=== PATIENT | male | born 1955 | race African-American/Black ===

== ENCOUNTER 2016-09-09 15:09 | Emergency (ER) | payer MEDICARE ==
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
[2016-09-09 20:55] VITALS: BP 129/82
== END 2016-09-09 20:35 | disposition home or self-care (01) ==
LOC: ER 15:09
DX: J06.9 Acute upper respiratory infection, unspecified (principal); M54.9 Dorsalgia, unspecified; M25.511 Pain in right shoulder; M54.6 Pain in thoracic spine
CPT/HCPCS: 71020; 99283

== ENCOUNTER → 2017-02-25 | Outpatient (CLI) | payer MEDICARE ==
[2017-02-25 12:49] LABS: HEMATOCRIT 36.5 % (37.9-51.0); HEMOGLOBIN 11.9 g/dL (13.5-17.0); HGB HCT DIFFERENCE -0.8; MEAN CORPUSCULAR HEMOGLOBIN 32.9 pg (27.0-33.4); MEAN CORPUSCULAR HGB CONC 32.5 g/dL (32.0-36.0); MEAN CORPUSCULAR VOLUME 101 fl (80-97); RED BLOOD COUNT 3.61 10^6/uL (4.35-5.55); RED CELL DISTRIBUTION WIDTH 14.2 % (11.5-14.0); WHITE BLOOD COUNT 4.1 10^3/uL (4.0-10.5)
[2017-02-25 12:54] LABS: APPEARANCE,URINE SLIGHTLY-CLOUDY; BILIRUBIN,URINE NEGATIVE (NEGATIVE); GLUCOSE, URINE NEGATIVE (NEGATIVE); KETONES,URINE NEGATIVE (NEGATIVE); LEUKOCYTE ESTERASE,URINE NEGATIVE (NEGATIVE); NITRITE,URINE NEGATIVE (NEGATIVE); PROTEIN,URINE NEGATIVE (NEGATIVE); URINE SPECIFIC GRAVITY 1.004; UROBILINOGEN,URINE NEGATIVE mg/dL (<2.0)
[2017-02-25 13:15] LABS: ANION GAP 9 (5-19); BLOOD UREA NITROGEN 26 mg/dL (7-20); CALCIUM 10.4 mg/dL (8.4-10.2); CARBON DIOXIDE 28 mmol/L (22-30); CHLORIDE 101 mmol/L (98-107); CREATININE RESULT 1.84 mg/dL (0.52-1.25); GLUCOSE 106 mg/dL (75-110); POTASSIUM 4.5 mmol/L (3.6-5.0); SODIUM 138.2 mmol/L (137-145)
== END ==
LOC: OD 11:47
PROVIDERS: ATTEND Internal Medicine Nephrology
DX: E11.22 Type 2 diabetes mellitus with diabetic chronic kidney disease (principal); I12.9 Hypertensive chronic kidney disease with stage 1 through stage 4 chronic kidney disease, or unspecified chronic kidney disease; N18.3 Chronic kidney disease, stage 3 (moderate); D64.9 Anemia, unspecified
CPT/HCPCS: 36415; 80048; 81001; 82728; 83540; 83550; 85027

== ENCOUNTER → 2017-05-27 | Outpatient (CLI) | payer MEDICARE ==
[2017-05-27 10:49] LABS: APPEARANCE,URINE CLEAR; BILIRUBIN,URINE NEGATIVE (NEGATIVE); GLUCOSE, URINE NEGATIVE (NEGATIVE); KETONES,URINE NEGATIVE (NEGATIVE); LEUKOCYTE ESTERASE,URINE NEGATIVE (NEGATIVE); NITRITE,URINE NEGATIVE (NEGATIVE); PROTEIN,URINE NEGATIVE (NEGATIVE); URINE SPECIFIC GRAVITY 1.005; UROBILINOGEN,URINE NEGATIVE mg/dL (<2.0)
[2017-05-27 10:52] LABS: HEMATOCRIT 34.6 % (37.9-51.0); HEMOGLOBIN 12.1 g/dL (13.5-17.0); HGB HCT DIFFERENCE 1.7; MEAN CORPUSCULAR HEMOGLOBIN 34.6 pg (27.0-33.4); MEAN CORPUSCULAR HGB CONC 34.9 g/dL (32.0-36.0); MEAN CORPUSCULAR VOLUME 99 fl (80-97); RED BLOOD COUNT 3.49 10^6/uL (4.35-5.55); WHITE BLOOD COUNT 4.2 10^3/uL (4.0-10.5)
[2017-05-27 11:08] LABS: ANION GAP 11 (5-19); BLOOD UREA NITROGEN 31 mg/dL (7-20); CALCIUM 11.1 mg/dL (8.4-10.2); CARBON DIOXIDE 26 mmol/L (22-30); CHLORIDE 104 mmol/L (98-107); CREATININE RESULT 1.94 mg/dL (0.52-1.25); GLUCOSE 117 mg/dL (75-110); POTASSIUM 4.5 mmol/L (3.6-5.0); SODIUM 140.8 mmol/L (137-145)
== END ==
LOC: OD 10:03
PROVIDERS: ATTEND Internal Medicine Nephrology
DX: E83.52 Hypercalcemia (principal); I12.9 Hypertensive chronic kidney disease with stage 1 through stage 4 chronic kidney disease, or unspecified chronic kidney disease; N18.3 Chronic kidney disease, stage 3 (moderate); M10.00 Idiopathic gout, unspecified site
CPT/HCPCS: 36415; 80048; 81001; 83970; 85027

== ENCOUNTER → 2017-08-20 | Outpatient (CLI) | payer MEDICARE ==
[2017-08-20 13:17] LABS: HEMATOCRIT 39.4 % (37.9-51.0); HGB HCT DIFFERENCE -0.4; MEAN CORPUSCULAR HEMOGLOBIN 32.7 pg (27.0-33.4); MEAN CORPUSCULAR VOLUME 99 fl (80-97); RED BLOOD COUNT 3.98 10^6/uL (4.35-5.55); RED CELL DISTRIBUTION WIDTH 13.8 % (11.5-14.0); WHITE BLOOD COUNT 4.6 10^3/uL (4.0-10.5)
[2017-08-20 13:23] LABS: APPEARANCE,URINE CLEAR; BILIRUBIN,URINE NEGATIVE (NEGATIVE); GLUCOSE, URINE NEGATIVE (NEGATIVE); KETONES,URINE NEGATIVE (NEGATIVE); LEUKOCYTE ESTERASE,URINE NEGATIVE (NEGATIVE); NITRITE,URINE NEGATIVE (NEGATIVE); PROTEIN,URINE NEGATIVE (NEGATIVE); URINE SPECIFIC GRAVITY 1.004; UROBILINOGEN,URINE NEGATIVE mg/dL (<2.0)
[2017-08-20 13:40] LABS: ANION GAP 10 (5-19); BLOOD UREA NITROGEN 21 mg/dL (7-20); CARBON DIOXIDE 32 mmol/L (22-30); CHLORIDE 99 mmol/L (98-107); CREATININE RESULT 1.66 mg/dL (0.52-1.25); GLUCOSE 102 mg/dL (75-110); POTASSIUM 4.3 mmol/L (3.6-5.0); SODIUM 140.5 mmol/L (137-145)
[2017-08-22 12:38] LABS: CREATININE URINE 34.4 mg/dL (Not Estab.)
[2017-08-22 15:21] LABS: MICROALBUMIN URINE <3.0 ug/mL (Not Estab.)
== END ==
LOC: OD 12:10
PROVIDERS: ATTEND Physician Assistant Medical
DX: I12.9 Hypertensive chronic kidney disease with stage 1 through stage 4 chronic kidney disease, or unspecified chronic kidney disease (principal); N18.3 Chronic kidney disease, stage 3 (moderate); E11.9 Type 2 diabetes mellitus without complications; D64.9 Anemia, unspecified
CPT/HCPCS: 36415; 80048; 81001; 82043; 82570; 84165; 85027

== ENCOUNTER 2017-08-27 14:16 | Emergency (ER) | payer MEDICARE ==
[2017-08-27 14:22] VITALS: BP 137/64
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
== END 2017-08-27 16:02 | disposition home or self-care (01) ==
LOC: ER 14:16
DX: R05 Cough (principal); B99.9 Unspecified infectious disease; J44.9 Chronic obstructive pulmonary disease, unspecified; R51 Headache; R11.0 Nausea; J02.9 Acute pharyngitis, unspecified; R09.81 Nasal congestion; I10 Essential (primary) hypertension; E11.9 Type 2 diabetes mellitus without complications; Z88.1 Allergy status to other antibiotic agents; Z88.8 Allergy status to other drugs, medicaments and biological substances; Z95.5 Presence of coronary angioplasty implant and graft
CPT/HCPCS: 82962; 99283

== ENCOUNTER 2017-12-10 14:45 | Emergency (ER) | payer MEDICARE, MEDICAID ==
[2017-12-10 15:09] VITALS: BP 138/109
[2017-12-10] MEDS ORDERED: PENICILLIN V POTASSIUM 500 MG TABLET PO ONE (15:36)
[2017-12-10] MEDS ORDERED: ACETAMINOPHEN 325 MG TABLET PO ONE (15:36)
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
== END 2017-12-10 15:36 | disposition home or self-care (01) ==
LOC: ER 14:45
DX: K08.9 Disorder of teeth and supporting structures, unspecified (principal); I50.9 Heart failure, unspecified; E78.00 Pure hypercholesterolemia, unspecified; I11.0 Hypertensive heart disease with heart failure; J44.9 Chronic obstructive pulmonary disease, unspecified; E11.9 Type 2 diabetes mellitus without complications; K21.9 Gastro-esophageal reflux disease without esophagitis
CPT/HCPCS: 99282; A9270 ×2

== ENCOUNTER → 2018-02-05 | Outpatient (CLI) | payer MEDICARE, MEDICAID ==
[2018-02-05 15:45] LABS: HEMOGLOBIN 12.9 g/dL (13.5-17.0); MEAN CORPUSCULAR HGB CONC 33.2 g/dL (32.0-36.0); MEAN CORPUSCULAR VOLUME 99 fl (80-97); PLATELET COUNT 152 10^3/uL (150-450); RED BLOOD COUNT 3.93 10^6/uL (4.35-5.55); WHITE BLOOD COUNT 4.1 10^3/uL (4.0-10.5)
[2018-02-05 15:49] LABS: APPEARANCE,URINE CLEAR; BILIRUBIN,URINE NEGATIVE (NEGATIVE); COLOR,URINE STRAW; GLUCOSE, URINE NEGATIVE (NEGATIVE); KETONES,URINE NEGATIVE (NEGATIVE); LEUKOCYTE ESTERASE,URINE NEGATIVE (NEGATIVE); NITRITE,URINE NEGATIVE (NEGATIVE); PROTEIN,URINE NEGATIVE (NEGATIVE); URINE SPECIFIC GRAVITY 1.005; UROBILINOGEN,URINE NEGATIVE mg/dL (<2.0)
[2018-02-05 16:09] LABS: ANION GAP 12 (5-19); BLOOD UREA NITROGEN 22 mg/dL (7-20); CALCIUM 11.3 mg/dL (8.4-10.2); CARBON DIOXIDE 31 mmol/L (22-30); CHLORIDE 102 mmol/L (98-107); GLUCOSE 101 mg/dL (75-110); POTASSIUM 4.4 mmol/L (3.6-5.0); SODIUM 145.1 mmol/L (137-145)
== END ==
LOC: OD 14:54
PROVIDERS: ATTEND Physician Assistant Medical
DX: E11.22 Type 2 diabetes mellitus with diabetic chronic kidney disease (principal); I12.9 Hypertensive chronic kidney disease with stage 1 through stage 4 chronic kidney disease, or unspecified chronic kidney disease; N18.3 Chronic kidney disease, stage 3 (moderate); M10.00 Idiopathic gout, unspecified site; D64.9 Anemia, unspecified
CPT/HCPCS: 36415; 80048; 81001; 85027

== ENCOUNTER 2018-05-28 19:48 | Inpatient (IN) | payer MEDICARE, MEDICAID ==
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
[2018-05-28 21:18] LABS: ABSOLUTE EOSINOPHILS # (AUTO) 0.2 10^3/uL (0.0-0.6); ABSOLUTE LYMPHOCYTES (AUTO) 1.3 10^3/uL (0.5-4.7); ABSOLUTE MONOCYTES (AUTO) 0.5 10^3/uL (0.1-1.4); ABSOLUTE NEUT (AUTO) 3.4 10^3/uL (1.7-8.2); BASOPHILS % (AUTO) 0.6 % (0-2); EOSINOPHILS % (AUTO) 3.4 % (0-6); LYMPHOCYTES % (AUTO) 23.5 % (13-45); MEAN CORPUSCULAR HEMOGLOBIN 33.1 pg (27.0-33.4); MEAN CORPUSCULAR HGB CONC 33.3 g/dL (32.0-36.0); MEAN CORPUSCULAR VOLUME 100 fl (80-97); MONOCYTES % (AUTO) 9.9 % (3-13); PLATELET COUNT 173 10^3/uL (150-450); RED BLOOD COUNT 3.91 10^6/uL (4.35-5.55); RED CELL DISTRIBUTION WIDTH 14.1 % (11.5-14.0); SEGMENTED NEUTROPHILS % (AUTO) 62.6 % (42-78); TOTAL CELLS COUNTED % (AUTO) 100 %; WHITE BLOOD COUNT 5.4 10^3/uL (4.0-10.5)
[2018-05-28 21:31] LABS: ANION GAP 12 (5-19); BLOOD UREA NITROGEN 54 mg/dL (7-20); CARBON DIOXIDE 25 mmol/L (22-30); CHLORIDE 100 mmol/L (98-107); GLUCOSE 87 mg/dL (75-110); POTASSIUM 4.7 mmol/L (3.6-5.0); SODIUM 137.4 mmol/L (137-145)
[2018-05-28 21:48] LABS: NT PRO BNP 50 pg/mL (5-900)
[2018-05-28 21:52] LABS: TROPONIN I < 0.012 ng/mL
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
[2018-05-29] MEDS ORDERED: NORMAL SALINE 1000 ML 500 ML IV ONE (00:46)
--- NOTE | 2018-05-29 00:52 | RADIOLOGY REPORT (SQ) ---
EXAM DESCRIPTION: Chest two view CLINICAL HISTORY: 63 years Male shortness of breath COMPARISON: 09/09/2016 COMPLETED DATE/TME: 05/28/2018 20:48 FINDINGS: Cardiac enlargement. Lungs appear hyperinflated. Prominence of the central pulmonary vasculature. No evidence of acute consolidation. No edema or pleural fluid. IMPRESSION: Cardiac enlargement and prominence of the central pulmonary vasculature
[2018-05-29] MEDS ORDERED: 1/2 NORMAL SALINE 1,000 ML IV PRN (05:35)
[2018-05-29] MEDS ORDERED: ALBUTEROL SULFATE HFA (90 MCG/PUFF) 8 GM MDI (1 MDI/ER DISP) IH PRN ×2 (05:43→06:30)
[2018-05-29] MEDS ORDERED: GABAPENTIN 300 MG CAPSULE PO ONE (06:15)
[2018-05-29 06:46] LABS: ALANINE AMINOTRANSFERASE 30 U/L (21-72); ALBUMIN 4.4 g/dL (3.5-5.0); ALKALINE PHOSPHATASE 73 U/L (38-126); ASPARTATE AMINO TRANSFERASE 15 U/L (17-59); BILIRUBIN,DIRECT 0.5 mg/dL (0.0-0.4); BILIRUBIN,TOTAL 0.9 mg/dL (0.2-1.3); CREATINE KINASE 98 U/L (55-170)
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
[2018-05-29 08:27] LABS: APPEARANCE,URINE CLEAR; BILIRUBIN,URINE NEGATIVE (NEGATIVE); COLOR,URINE YELLOW; GLUCOSE, URINE NEGATIVE (NEGATIVE); KETONES,URINE NEGATIVE (NEGATIVE); LEUKOCYTE ESTERASE,URINE NEGATIVE (NEGATIVE); NITRITE,URINE NEGATIVE (NEGATIVE); PROTEIN,URINE NEGATIVE (NEGATIVE); URINE SPECIFIC GRAVITY 1.011; UROBILINOGEN,URINE NEGATIVE mg/dL (<2.0)
[2018-05-29] MEDS: AMLODIPINE BESYLATE 10 MG TABLET PO SCH (10:23)
[2018-05-29] MEDS: METOPROLOL TARTRATE 50 MG TABLET PO SCH ×2 (10:23→18:23)
[2018-05-29] MEDS: FAMOTIDINE 20 MG TABLET PO SCH (10:23)
[2018-05-29] MEDS: ASPIRIN/DIPYRIDAMOLE 25-200 MG 1 CAP.SR CPMP.12HR PO SCH ×2 (10:23→21:24)
[2018-05-29] MEDS: ENOXAPARIN SODIUM INJ 30 MG/0.3 ML DISP.SYRIN SUBCUT SCH (10:24)
--- NOTE | 2018-05-29 10:25 | EKG REPORT ---
SEVERITY:- ABNORMAL ECG - SINUS RHYTHM FIRST DEGREE AV BLOCK LEFT BUNDLE BRANCH BLOCK : Confirmed by: Clover Madison MD 29-May-2018 10:25:05
[2018-05-29] MEDS: CETIRIZINE 10 MG TABLET PO SCH (11:00)
--- NOTE | 2018-05-29 11:25 | RADIOLOGY REPORT (SQ) ---
EXAM DESCRIPTION: U/S RETROPERITON (RENAL/AORTA) COMPLETED DATE/TIME: 05/29/2018 11:00 am REASON FOR STUDY: lucas ro hydronephrosis check pvr COMPARISON: None. TECHNIQUE: Dynamic and static grayscale images acquired of the kidneys and bladder and recorded on P ACS. Additional selected color Doppler and spectral images recorded. LIMITATIONS: Limited images due to the patient's body habitus. FINDINGS: RIGHT KIDNEY: Normal size. Normal echogenicity. No solid or suspicious masses. No hydronep hrosis. No calcifications. LEFT KIDNEY: Normal size. Normal echogenicity. No solid or suspicious masses. No hydronephrosis. No calcifications. BLADDER: Unable to visualize. OTHER FINDINGS: No other significant finding. IMPRESSION: NORMAL RENAL ULTRASOUND. UNABLE TO VISUALIZE THE BLADDER. TECHNICAL DOCUMENTATION: JOB ID: [id number] [employer]- All Rights Reserved Reading location - IP/workstation name: [email or web address]
[2018-05-29] MEDS: GABAPENTIN 300 MG CAPSULE PO SCH ×2 (15:57→21:25)
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
--- NOTE | 2018-05-29 19:18 | RADIOLOGY REPORT (SQ) ---
EXAM DESCRIPTION: VENOUS UNILATERAL LOWER COMPLETED DATE/TIME: 05/29/2018 7:08 pm REASON FOR STUDY: swollen right leg with dyspnea. COMPARISON: None. TECHNIQUE: Dynamic and static baca scale and color images acquired of the right leg venous system. S elected spectral images acquired with additional compression and augmentation maneuvers. The contrala teral common femoral vein and saphenofemoral junction were also imaged. Images stored on PACS. LIMITATIONS: None. FINDINGS: COMMON FEMORAL: Normal phasicity, compression and augmentation. No visualized echogenic ma terial on baca scale. No defects on color images. FEMORAL: Normal compression and augmentation. No visualized echogenic material on baca scale. No defe cts on color images. POPLITEAL: Normal compression, augmentation. No visualized echogenic material on baca scale. No defec ts on color images. CALF VESSELS: Normal compression, augmentation. No visualized echogenic material on baca scale. No de fects on color images. GSV and SSV: Normal compression, augmentation. No visualized echogenic material on baca scale. No def ects on color images. ANY DEEP VENOUS INSUFFICIENCY: Not evaluated. ANY EVIDENCE OF POPLITEAL CYST: No. OTHER: No other significant finding. CONTRALATERAL COMMON FEMORAL VEIN AND SAPHENOFEMORAL JUNCTION: Normal phasicity, compression and augmentation. No visualized echogenic material on baca scale. No de fects on color images. IMPRESSION: NO EVIDENCE OF DVT OR SVT IN THE RIGHT LEG. TECHNICAL DOCUMENTATION: JOB ID: [id number] [id number] 2010 [employer]- All Rights Reserved Reading location - IP/workstation name: [email or web address]
[2018-05-29] MEDS: FUROSEMIDE INJ/PF 20 MG/2 ML SDV IV SCH (21:25)
[2018-05-30] MEDS: GABAPENTIN 300 MG CAPSULE PO SCH ×3 (05:49→22:01)
[2018-05-30] MEDS: FUROSEMIDE INJ/PF 20 MG/2 ML SDV IV SCH ×3 (05:49→22:02)
[2018-05-30 07:56] LABS: ANION GAP 8 (5-19); BLOOD UREA NITROGEN 44 mg/dL (7-20); CALCIUM 10.3 mg/dL (8.4-10.2); CARBON DIOXIDE 28 mmol/L (22-30); CHLORIDE 105 mmol/L (98-107); GLUCOSE 104 mg/dL (75-110); POTASSIUM 4.3 mmol/L (3.6-5.0); SODIUM 141.3 mmol/L (137-145)
--- NOTE | 2018-05-30 08:53 | PDOC PROGRESS REPORT ---
Subjective Progress Note for:: 05/30/18 Subjective:: less dyspnea Reason For Visit: ALYX Physical Exam Vital Signs: Temp Pulse Resp BP Pulse Ox 98.1 F 80 20 124/59 L 93 05/30/18 07:45 05/30/18 07:45 05/30/18 07:45 05/30/18 07:45 05/30/18 07:45 Intake & Output 05/29/18 05/30/18 05/31/18 07:59 07:59 07:59 Intake Total 500 1000 Balance 500 1000 Weight 382 lb 0.977 oz General appearance: PRESENT: no acute distress Respiratory exam: PRESENT: clear to auscultation caden Cardiovascular exam: ABSENT: diastolic murmur, irregular rhythm, systolic murmur GI/Abdominal exam: ABSENT: mass, organolmegaly, tenderness Extremities exam: PRESENT: pedal edema - 1+ Neurological exam: PRESENT: oriented to situation Psychiatric exam: PRESENT: appropriate affect Results Laboratory Results: 05/30/18 06:09 05/30/18 06:09 Sodium 141.3 Potassium 4.3 Chloride 105 Carbon Dioxide 28 Anion Gap 8 BUN 44 H Creatinine 2.05 H Est GFR ( Amer) 40 L Est GFR (Non-Af Amer) 33 L Glucose 104 Calcium 10.3 H Magnesium 2.2 05/29/18 06:10 Creatine Kinase 98 Impressions: Chest X-Ray 05/28/18 20:48 IMPRESSION: Cardiac enlargement and prominence of the central pulmonary vasculature Renal Ultrasound 05/29/18 00:00 IMPRESSION: NORMAL RENAL ULTRASOUND. UNABLE TO VISUALIZE THE BLADDER. Venous Doppler Study 05/29/18 00:00 IMPRESSION: NO EVIDENCE OF DVT OR SVT IN THE RIGHT LEG. Assessment & Plan - Diagnosis (1) Acute kidney failure with tubular necrosis Is this a current diagnosis for this admission?: Yes Plan: cr3.[address] [facility] I do not know how much furosemide he should take when discharged. Was on 40qd. (2) Chronic combined systolic and diastolic heart failure Is this a current diagnosis for this admission?: Yes Plan: Bnp50 on admission (3) Type 2 diabetes mellitus with diabetic chronic kidney disease Qualifiers: Diabetes mellitus mcc insulin use: without termite renewal inspector use Chronic kidney disease stage: stage 4 (severe) Qualified Code(s): E11.22 - Type 2 diabetes mellitus with diabetic chronic kidney disease; N18.4 - Chronic kidney disease, stage 4 (severe); N18.4 - Chronic kidney disease, stage 4 (severe); N18.4 - Chronic kidney disease, stage 4 (severe); N18.4 - Chronic kidney disease , stage 4 (severe) Is this a current diagnosis for this admission?: Yes Plan: A1c6.5 on diet (4) Complex partial epilepsy Qualifiers: Epilepsy type: partial symptomatic Intractability: not intractable Status epilepticus: without status epilepticus Qualified Code(s): G40.209 - Localization-related (focal) (partial) symptomatic epilepsy and epileptic syndromes with complex partial seizures, not intractable, without status epilepticus Is this a current diagnosis for this admission?: Yes (5) Carotid artery syndrome hemispheric Is this a current diagnosis for this admission?: Yes (6) Mild intermittent asthma, uncomplicated Is this a current diagnosis for this admission?: Yes (7) Obstructive sleep apnea Is this a current diagnosis for this admission?: Yes (8) Idiopathic chronic gout of multiple sites without tophus Is this a current diagnosis for this admission?: Yes (9) Primary osteoarthritis of both knees Is this a current diagnosis for this admission?: Yes - Inpatient Certification Medical Necessity: Failure to Improve With Outpatient Therapy, Significant Comorbidiites Make Outpatient Treatment Too Risky, Need Close Monitoring Due to Risk of Patient Decompensation, Need For Continuous Telemetry Monitoring, Risk of Complication if Not Cared For in Hospital, Risk of Diagnosis Which Will Require Inpatient Eval/Care/Monitoring
[2018-05-30] MEDS: ASPIRIN/DIPYRIDAMOLE 25-200 MG 1 CAP.SR CPMP.12HR PO SCH ×2 (10:51→17:01)
[2018-05-30] MEDS: AMLODIPINE BESYLATE 10 MG TABLET PO SCH (10:51)
[2018-05-30] MEDS: FAMOTIDINE 20 MG TABLET PO SCH (10:51)
[2018-05-30] MEDS: CETIRIZINE 10 MG TABLET PO SCH (10:52)
[2018-05-30] MEDS: METOPROLOL TARTRATE 50 MG TABLET PO SCH ×2 (10:52→17:00)
[2018-05-30] MEDS: ENOXAPARIN SODIUM INJ 30 MG/0.3 ML DISP.SYRIN SUBCUT SCH (10:53)
[2018-05-31] MEDS: GABAPENTIN 300 MG CAPSULE PO SCH ×3 (05:35→21:29)
[2018-05-31] MEDS: FUROSEMIDE INJ/PF 20 MG/2 ML SDV IV SCH ×3 (05:35→21:30)
[2018-05-31 07:57] LABS: ANION GAP 7 (5-19); BLOOD UREA NITROGEN 36 mg/dL (7-20); CALCIUM 10.5 mg/dL (8.4-10.2); CARBON DIOXIDE 29 mmol/L (22-30); CHLORIDE 103 mmol/L (98-107); GLUCOSE 126 mg/dL (75-110); POTASSIUM 4.2 mmol/L (3.6-5.0); SODIUM 139.2 mmol/L (137-145)
--- NOTE | 2018-05-31 09:55 | PDOC PROGRESS REPORT ---
Subjective Progress Note for:: 05/31/18 Subjective:: less major Reason For Visit: ALYX Physical Exam Vital Signs: Temp Pulse Resp BP Pulse Ox 98.2 F 66 19 137/67 H 99 05/31/18 07:45 05/31/18 07:45 05/31/18 07:45 05/31/18 07:45 05/31/18 07:45 Intake & Output 05/30/18 05/31/18 06/01/18 07:59 07:59 07:59 Intake Total 1000 3488 Output Total 3225 Balance 1000 263 Weight 382 lb 0.977 oz 367 lb 8.169 oz General appearance: PRESENT: no acute distress Respiratory exam: PRESENT: clear to auscultation caden Cardiovascular exam: ABSENT: diastolic murmur, irregular rhythm, systolic murmur GI/Abdominal exam: ABSENT: tenderness Extremities exam: PRESENT: pedal edema - R1+ L trace Results Laboratory Results: 05/31/18 06:06 05/31/18 06:06 Sodium 139.2 Potassium 4.2 Chloride 103 Carbon Dioxide 29 Anion Gap 7 BUN 36 H Creatinine 1.89 H Est GFR ( Amer) 44 L Est GFR (Non-Af Amer) 36 L Glucose 126 H Calcium 10.5 H 05/29/18 06:10 Creatine Kinase 98 Impressions: Chest X-Ray 05/28/18 20:48 IMPRESSION: Cardiac enlargement and prominence of the central pulmonary vasculature Renal Ultrasound 05/29/18 00:00 IMPRESSION: NORMAL RENAL ULTRASOUND. UNABLE TO VISUALIZE THE BLADDER. Venous Doppler Study 05/29/18 00:00 IMPRESSION: NO EVIDENCE OF DVT OR SVT IN THE RIGHT LEG. Assessment & Plan - Diagnosis (1) Acute kidney failure with tubular necrosis Is this a current diagnosis for this admission?: Yes Plan: bun36 cr1.9. Need to know furosemide dose on discharge. (2) Chronic combined systolic and diastolic heart failure Is this a current diagnosis for this admission?: Yes Plan: less edema (3) Type 2 diabetes mellitus with diabetic chronic kidney disease Qualifiers: Diabetes mellitus superintendent container terminal insulin use: without detention use Chronic kidney disease stage: stage 4 (severe) Qualified Code(s): E11.22 - Type 2 diabetes mellitus with diabetic chronic kidney disease; N18.4 - Chronic kidney disease, stage 4 (severe); N18.4 - Chronic kidney disease, stage 4 (severe); N18.4 - Chronic kidney disease, stage 4 (severe); N18.4 - Chronic kidney disease , stage 4 (severe) Is this a current diagnosis for this admission?: Yes (4) Complex partial epilepsy Qualifiers: Epilepsy type: partial symptomatic Intractability: not intractable Status epilepticus: without status epilepticus Qualified Code(s): G40.209 - Localization-related (focal) (partial) symptomatic epilepsy and epileptic syndromes with complex partial seizures, not intractable, without status epilepticus Is this a current diagnosis for this admission?: Yes (5) Carotid artery syndrome hemispheric Is this a current diagnosis for this admission?: Yes (6) Mild intermittent asthma, uncomplicated Is this a current diagnosis for this admission?: Yes (7) Obstructive sleep apnea Is this a current diagnosis for this admission?: Yes (8) Idiopathic chronic gout of multiple sites without tophus Is this a current diagnosis for this admission?: Yes (9) Primary osteoarthritis of both knees Is this a current diagnosis for this admission?: Yes - Inpatient Certification Medical Necessity: Failure to Improve With Outpatient Therapy, Significant Comorbidiites Make Outpatient Treatment Too Risky, Need Close Monitoring Due to Risk of Patient Decompensation, Need For Continuous Telemetry Monitoring, Risk of Complication if Not Cared For in Hospital, Risk of Diagnosis Which Will Require Inpatient Eval/Care/Monitoring - Plan Summary Plan Summary: continue furosemide 20iv tid for now
[2018-05-31] MEDS: AMLODIPINE BESYLATE 10 MG TABLET PO SCH (10:07)
[2018-05-31] MEDS: ASPIRIN/DIPYRIDAMOLE 25-200 MG 1 CAP.SR CPMP.12HR PO SCH ×2 (10:13→18:53)
[2018-05-31] MEDS: FAMOTIDINE 20 MG TABLET PO SCH (10:13)
[2018-05-31] MEDS: METOPROLOL TARTRATE 50 MG TABLET PO SCH ×2 (10:13→18:53)
[2018-05-31] MEDS: CETIRIZINE 10 MG TABLET PO SCH (10:13)
[2018-05-31] MEDS: ENOXAPARIN SODIUM INJ 30 MG/0.3 ML DISP.SYRIN SUBCUT SCH (10:14)
[2018-06-01] MEDS: FUROSEMIDE INJ/PF 20 MG/2 ML SDV IV SCH ×3 (06:10→21:45)
[2018-06-01] MEDS: GABAPENTIN 300 MG CAPSULE PO SCH ×3 (06:10→21:45)
[2018-06-01 06:49] LABS: ANION GAP 8 (5-19); BLOOD UREA NITROGEN 33 mg/dL (7-20); CALCIUM 10.9 mg/dL (8.4-10.2); CARBON DIOXIDE 29 mmol/L (22-30); CHLORIDE 103 mmol/L (98-107); GLUCOSE 104 mg/dL (75-110); POTASSIUM 4.3 mmol/L (3.6-5.0); SODIUM 139.5 mmol/L (137-145)
--- NOTE | 2018-06-01 07:34 | PDOC PROGRESS REPORT ---
Subjective Progress Note for:: 06/01/18 Subjective:: no major walking halls. Misses broken bipap from home. Cant get to [place] for service. Wants one from [facility]. Reason For Visit: ALYX Physical Exam Vital Signs: Temp Pulse Resp BP Pulse Ox 98.2 F 64 18 124/72 98 06/01/18 03:55 06/01/18 03:55 06/01/18 03:55 06/01/18 03:55 06/01/18 03:55 Intake & Output 05/30/18 05/31/18 06/01/18 07:59 07:59 07:59 Intake Total 1000 3488 2420 Output Total 3225 3550 Balance 1000 263 -1130 Weight 382 lb 0.977 oz 367 lb 8.169 oz 372 lb 5.772 oz General appearance: PRESENT: no acute distress Respiratory exam: PRESENT: clear to auscultation caden Cardiovascular exam: ABSENT: diastolic murmur, irregular rhythm, systolic murmur Extremities exam: PRESENT: pedal edema - trace Neurological exam: PRESENT: oriented to situation Psychiatric exam: PRESENT: appropriate affect Results Laboratory Results: 06/01/18 05:15 05/31/18 06/01/18 06:06 05:15 Sodium 139.2 139.5 Potassium 4.2 4.3 Chloride 103 103 Carbon Dioxide 29 29 Anion Gap 7 8 BUN 36 H 33 H Creatinine 1.89 H 1.74 H Est GFR ( Amer) 44 L 48 L Est GFR (Non-Af Amer) 36 L 40 L Glucose 126 H 104 Calcium 10.5 H 10.9 H Impressions: Chest X-Ray 05/28/18 20:48 IMPRESSION: Cardiac enlargement and prominence of the central pulmonary vasculature Renal Ultrasound 05/29/18 00:00 IMPRESSION: NORMAL RENAL ULTRASOUND. UNABLE TO VISUALIZE THE BLADDER. Venous Doppler Study 05/29/18 00:00 IMPRESSION: NO EVIDENCE OF DVT OR SVT IN THE RIGHT LEG. Assessment & Plan - Diagnosis (1) Acute kidney failure with tubular necrosis Is this a current diagnosis for this admission?: Yes Plan: BUN33 cr1.7 Ca10.9 on furosemide 120/d iv. Calcium normal on admission. I am guessing on home dose 20mg qd ??? (2) Chronic combined systolic and diastolic heart failure Is this a current diagnosis for this admission?: Yes (3) Type 2 diabetes mellitus with diabetic chronic kidney disease Qualifiers: Diabetes mellitus chcf insulin use: without chcf use Chronic kidney disease stage: stage 4 (severe) Qualified Code(s): E11.22 - Type 2 diabetes mellitus with diabetic chronic kidney disease; N18.4 - Chronic kidney disease, stage 4 (severe); N18.4 - Chronic kidney disease, stage 4 (severe); N18.4 - Chronic kidney disease, stage 4 (severe); N18.4 - Chronic kidney disease , stage 4 (severe) Is this a current diagnosis for this admission?: Yes (4) Complex partial epilepsy Qualifiers: Epilepsy type: partial symptomatic Intractability: not intractable Status epilepticus: without status epilepticus Qualified Code(s): G40.209 - Localization-related (focal) (partial) symptomatic epilepsy and epileptic syndromes with complex partial seizures, not intractable, without status epilepticus Is this a current diagnosis for this admission?: Yes (5) Carotid artery syndrome hemispheric Is this a current diagnosis for this admission?: Yes (6) Mild intermittent asthma, uncomplicated Is this a current diagnosis for this admission?: Yes (7) Obstructive sleep apnea Is this a current diagnosis for this admission?: Yes Plan: Rx for bipap 14*7. 2y ago [facility] had him on 15*[address] Kiran. Consult him. (8) Idiopathic chronic gout of multiple sites without tophus Is this a current diagnosis for this admission?: Yes (9) Primary osteoarthritis of both knees Is this a current diagnosis for this admission?: Yes - Inpatient Certification Medical Necessity: Failure to Improve With Outpatient Therapy, Significant Comorbidiites Make Outpatient Treatment Too Risky, Need Close Monitoring Due to Risk of Patient Decompensation, Need For Continuous Telemetry Monitoring, Risk of Complication if Not Cared For in Hospital, Risk of Diagnosis Which Will Require Inpatient Eval/Care/Monitoring
[2018-06-01] MEDS: ENOXAPARIN SODIUM INJ 30 MG/0.3 ML DISP.SYRIN SUBCUT SCH (10:39)
[2018-06-01] MEDS: FAMOTIDINE 20 MG TABLET PO SCH (10:39)
[2018-06-01] MEDS: AMLODIPINE BESYLATE 10 MG TABLET PO SCH (10:39)
[2018-06-01] MEDS: METOPROLOL TARTRATE 50 MG TABLET PO SCH (10:39)
[2018-06-01] MEDS: CETIRIZINE 10 MG TABLET PO SCH (10:43)
[2018-06-01] MEDS: ASPIRIN/DIPYRIDAMOLE 25-200 MG 1 CAP.SR CPMP.12HR PO SCH ×2 (10:43→17:23)
[2018-06-01] MEDS ORDERED: ALBUTEROL SULFATE HFA (90 MCG/PUFF) 200 PUFF/8.5 GM MDI IH PRN ×2 (11:36→12:00)
--- NOTE | 2018-06-01 11:57 | PDOC PROGRESS REPORT ---
Subjective Progress Note for:: 06/01/18 Reason For Visit: Doing better. Dyspnea on exertion and pedl edema are considerably better.He has been ambulatory.Labs and meds were reviewed with him. Physical Exam Vital Signs: Temp Pulse Resp BP Pulse Ox 98.3 F 72 18 133/71 H 99 06/01/18 10:43 06/01/18 10:43 06/01/18 10:43 06/01/18 10:43 06/01/18 10:43 Intake & Output 05/31/18 06/01/18 06/02/18 06:59 06:59 06:59 Intake Total 3488 2420 475 Output Total 3225 3550 700 Balance 263 -1130 -225 Weight 166.7 kg 168.9 kg General appearance: PRESENT: no acute distress Respiratory exam: PRESENT: clear to auscultation caden. ABSENT: crackles Cardiovascular exam: PRESENT: +S1, +S2 GI/Abdominal exam: PRESENT: soft. ABSENT: diminished bowel sounds, distended, renal bruit, tenderness Extremities exam: PRESENT: pedal edema - -Trace+ Neurological exam: PRESENT: alert, awake, oriented to person, oriented to place Results Laboratory Results: 06/01/18 05:15 06/01/18 05:15 Sodium 139.5 Potassium 4.3 Chloride 103 Carbon Dioxide 29 Anion Gap 8 BUN 33 H Creatinine 1.74 H Est GFR ( Amer) 48 L Est GFR (Non-Af Amer) 40 L Glucose 104 Calcium 10.9 H 05/29/18 06:10 Creatine Kinase 98 Impressions: Chest X-Ray 05/28/18 20:48 IMPRESSION: Cardiac enlargement and prominence of the central pulmonary vasculature Renal Ultrasound 05/29/18 00:00 IMPRESSION: NORMAL RENAL ULTRASOUND. UNABLE TO VISUALIZE THE BLADDER. Venous Doppler Study 05/29/18 00:00 IMPRESSION: NO EVIDENCE OF DVT OR SVT IN THE RIGHT LEG. Assessment & Plan - Diagnosis (1) Acute kidney failure with tubular necrosis Is this a current diagnosis for this admission?: Yes Plan: Improving and near baseline.Convert IV to PO lasix 80 q am and can be discharge home.Adv to see me in 10 days with labs. (2) Congestive heart failure with left ventricular diastolic dysfunction Plan: Combination of left and right heart.Much better.Adv on diet and compliance with CPAP. (3) Hypertension Plan: Controlled. (5) Obstructive sleep apnea Is this a current diagnosis for this admission?: Yes Plan: Adv on cpap. (6) Type 2 diabetes mellitus with diabetic chronic kidney disease Qualifiers: Diabetes mellitus fci insulin use: without fci use Chronic kidney disease stage: stage 4 (severe) Qualified Code(s): E11.22 - Type 2 diabetes mellitus with diabetic chronic kidney disease; N18.4 - Chronic kidney disease, stage 4 (severe); N18.4 - Chronic kidney disease, stage 4 (severe); N18.4 - Chronic kidney disease, stage 4 (severe); N18.4 - Chronic kidney disease , stage 4 (severe) Is this a current diagnosis for this admission?: Yes Plan: Adv on tight control.
[2018-06-01] MEDS ORDERED: METOPROLOL TARTRATE 50 MG TABLET PO SCH (22:00)
[2018-06-02] MEDS: GABAPENTIN 300 MG CAPSULE PO SCH (05:38)
[2018-06-02 06:43] LABS: ANION GAP 9 (5-19); BLOOD UREA NITROGEN 31 mg/dL (7-20); CALCIUM 10.9 mg/dL (8.4-10.2); CARBON DIOXIDE 27 mmol/L (22-30); CHLORIDE 105 mmol/L (98-107); GLUCOSE 100 mg/dL (75-110); POTASSIUM 4.3 mmol/L (3.6-5.0); SODIUM 140.6 mmol/L (137-145)
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
[2018-06-02] MEDS ORDERED: FUROSEMIDE 80 MG TABLET PO SCH (10:00)
[2018-06-02] MEDS: CETIRIZINE 10 MG TABLET PO SCH (10:49)
[2018-06-02] MEDS: ENOXAPARIN SODIUM INJ 30 MG/0.3 ML DISP.SYRIN SUBCUT SCH (10:49)
[2018-06-02] MEDS: FAMOTIDINE 20 MG TABLET PO SCH (10:49)
[2018-06-02] MEDS: ASPIRIN/DIPYRIDAMOLE 25-200 MG 1 CAP.SR CPMP.12HR PO SCH (10:49)
[2018-06-02] MEDS: AMLODIPINE BESYLATE 10 MG TABLET PO SCH (10:50)
[2018-06-02 10:53] VITALS: BP 132/69
== END 2018-06-02 11:35 | disposition home or self-care (01) | DRG 683 ==
LOC: ER 19:48 → EH 05-29 01:29 → 4N 05-29 12:52
PROVIDERS: ADMIT Family Medicine; ATTEND Family Medicine
DX: N17.0 Acute kidney failure with tubular necrosis (principal); I13.0 Hypertensive heart and chronic kidney disease with heart failure and stage 1 through stage 4 chronic kidney disease, or unspecified chronic kidney disease; I50.42 Chronic combined systolic (congestive) and diastolic (congestive) heart failure; Z68.42 Body mass index [BMI] 45.0-49.9, adult; E11.21 Type 2 diabetes mellitus with diabetic nephropathy; E11.22 Type 2 diabetes mellitus with diabetic chronic kidney disease; K21.9 Gastro-esophageal reflux disease without esophagitis; J44.9 Chronic obstructive pulmonary disease, unspecified; D64.9 Anemia, unspecified; N18.4 Chronic kidney disease, stage 4 (severe); G40.909 Epilepsy, unspecified, not intractable, without status epilepticus; E66.9 Obesity, unspecified; G47.33 Obstructive sleep apnea (adult) (pediatric); F41.8 Other specified anxiety disorders; F43.10 Post-traumatic stress disorder, unspecified; M1A.09X0 Idiopathic chronic gout, multiple sites, without tophus (tophi)
CPT/HCPCS: 36415; 71046; 76770; 80048; 80076; 81001; 82550; 83036; 83735; 83880; 84484; 85025; 93005; 93010; 93971; 94660; 99285; J1650; J1940; J3490

== ENCOUNTER → 2018-06-15 | Outpatient (CLI) | payer MEDICARE, MEDICAID ==
[2018-06-15 14:44] LABS: HEMATOCRIT 35.3 % (37.9-51.0); HEMOGLOBIN 11.9 g/dL (13.5-17.0); MEAN CORPUSCULAR HEMOGLOBIN 33.1 pg (27.0-33.4); MEAN CORPUSCULAR HGB CONC 33.6 g/dL (32.0-36.0); MEAN CORPUSCULAR VOLUME 99 fl (80-97); PLATELET COUNT 130 10^3/uL (150-450); RED BLOOD COUNT 3.58 10^6/uL (4.35-5.55); RED CELL DISTRIBUTION WIDTH 14.3 % (11.5-14.0); WHITE BLOOD COUNT 3.6 10^3/uL (4.0-10.5)
[2018-06-15 15:03] LABS: ANION GAP 8 (5-19); BLOOD UREA NITROGEN 10 mg/dL (7-20); CALCIUM 10.3 mg/dL (8.4-10.2); CARBON DIOXIDE 32 mmol/L (22-30); CHLORIDE 100 mmol/L (98-107); GLUCOSE 127 mg/dL (75-110); POTASSIUM 3.6 mmol/L (3.6-5.0); SODIUM 139.8 mmol/L (137-145)
[2018-06-15 15:50] LABS: ADD MANUAL MICROSCOPIC YES; APPEARANCE,URINE CLEAR; BILIRUBIN,URINE NEGATIVE (NEGATIVE); COLOR,URINE LIGHT YELLOW; GLUCOSE, URINE NEGATIVE (NEGATIVE); KETONES,URINE NEGATIVE (NEGATIVE); LEUKOCYTE ESTERASE,URINE NEGATIVE (NEGATIVE); NITRITE,URINE NEGATIVE (NEGATIVE); PROTEIN,URINE NEGATIVE (NEGATIVE); URINE SPECIFIC GRAVITY 1.007; UROBILINOGEN,URINE NEGATIVE mg/dL (<2.0)
[2018-06-15 15:51] LABS: BACTERIA,URINE TRACE /HPF; WBC,URINE 0-1 /HPF
== END ==
LOC: OD 13:59
PROVIDERS: ATTEND Internal Medicine Nephrology
DX: I12.9 Hypertensive chronic kidney disease with stage 1 through stage 4 chronic kidney disease, or unspecified chronic kidney disease (principal); N18.3 Chronic kidney disease, stage 3 (moderate)
CPT/HCPCS: 36415; 80048; 81001; 85027

== ENCOUNTER → 2018-07-08 | Outpatient (CLI) | payer MEDICARE, MEDICAID ==
[2018-07-08 16:56] LABS: HEMATOCRIT 38.8 % (37.9-51.0); HEMOGLOBIN 12.9 g/dL (13.5-17.0); MEAN CORPUSCULAR HEMOGLOBIN 33.2 pg (27.0-33.4); MEAN CORPUSCULAR HGB CONC 33.4 g/dL (32.0-36.0); MEAN CORPUSCULAR VOLUME 99 fl (80-97); PLATELET COUNT 164 10^3/uL (150-450); RED CELL DISTRIBUTION WIDTH 14.3 % (11.5-14.0); WHITE BLOOD COUNT 4.6 10^3/uL (4.0-10.5)
[2018-07-08 17:04] LABS: APPEARANCE,URINE SLIGHTLY-CLOUDY; BILIRUBIN,URINE NEGATIVE (NEGATIVE); COLOR,URINE YELLOW; GLUCOSE, URINE 50 mg/dL (NEGATIVE); KETONES,URINE NEGATIVE (NEGATIVE); LEUKOCYTE ESTERASE,URINE NEGATIVE (NEGATIVE); NITRITE,URINE NEGATIVE (NEGATIVE); PROTEIN,URINE 30 mg/dL (NEGATIVE); URINE SPECIFIC GRAVITY 1.016; UROBILINOGEN,URINE NEGATIVE mg/dL (<2.0)
[2018-07-08 17:14] LABS: ANION GAP 11 (5-19); BLOOD UREA NITROGEN 9 mg/dL (7-20); CALCIUM 10.2 mg/dL (8.4-10.2); CARBON DIOXIDE 32 mmol/L (22-30); CHLORIDE 97 mmol/L (98-107); GLUCOSE 208 mg/dL (75-110); POTASSIUM 3.7 mmol/L (3.6-5.0); SODIUM 140.2 mmol/L (137-145)
== END ==
LOC: OD 15:10
PROVIDERS: ATTEND Physician Assistant Medical
DX: I12.9 Hypertensive chronic kidney disease with stage 1 through stage 4 chronic kidney disease, or unspecified chronic kidney disease (principal); N18.3 Chronic kidney disease, stage 3 (moderate); R60.9 Edema, unspecified
CPT/HCPCS: 36415; 80048; 81001; 85027

== ENCOUNTER → 2018-08-13 | Outpatient (CLI) | payer MEDICARE ==
[2018-08-13 11:22] LABS: HEMATOCRIT 38.7 % (37.9-51.0); HEMOGLOBIN 13.3 g/dL (13.5-17.0); MEAN CORPUSCULAR HEMOGLOBIN 33.5 pg (27.0-33.4); MEAN CORPUSCULAR HGB CONC 34.4 g/dL (32.0-36.0); MEAN CORPUSCULAR VOLUME 97 fl (80-97); PLATELET COUNT 157 10^3/uL (150-450); RED BLOOD COUNT 3.98 10^6/uL (4.35-5.55); RED CELL DISTRIBUTION WIDTH 13.4 % (11.5-14.0); WHITE BLOOD COUNT 3.9 10^3/uL (4.0-10.5)
[2018-08-13 11:24] LABS: APPEARANCE,URINE SLIGHTLY-CLOUDY; BILIRUBIN,URINE NEGATIVE (NEGATIVE); COLOR,URINE COLORLESS; GLUCOSE, URINE NEGATIVE (NEGATIVE); KETONES,URINE NEGATIVE (NEGATIVE); LEUKOCYTE ESTERASE,URINE NEGATIVE (NEGATIVE); NITRITE,URINE NEGATIVE (NEGATIVE); PROTEIN,URINE NEGATIVE (NEGATIVE); URINE SPECIFIC GRAVITY 1.005; UROBILINOGEN,URINE NEGATIVE mg/dL (<2.0)
[2018-08-13 11:49] LABS: ANION GAP 9 (5-19); BLOOD UREA NITROGEN 16 mg/dL (7-20); CALCIUM 10.4 mg/dL (8.4-10.2); CARBON DIOXIDE 37 mmol/L (22-30); CHLORIDE 96 mmol/L (98-107); GLUCOSE 149 mg/dL (75-110); POTASSIUM 3.4 mmol/L (3.6-5.0); SODIUM 142.4 mmol/L (137-145)
== END ==
LOC: OD 10:45
PROVIDERS: ATTEND Physician Assistant Medical
DX: I12.9 Hypertensive chronic kidney disease with stage 1 through stage 4 chronic kidney disease, or unspecified chronic kidney disease (principal); N18.3 Chronic kidney disease, stage 3 (moderate)
CPT/HCPCS: 36415; 80048; 81001; 85027

== ENCOUNTER → 2018-10-22 | Outpatient (CLI) | payer MEDICARE ==
[2018-10-22 10:52] LABS: HEMATOCRIT 41.9 % (37.9-51.0); HEMOGLOBIN 14.1 g/dL (13.5-17.0); MEAN CORPUSCULAR HEMOGLOBIN 32.6 pg (27.0-33.4); MEAN CORPUSCULAR HGB CONC 33.7 g/dL (32.0-36.0); MEAN CORPUSCULAR VOLUME 97 fl (80-97); PLATELET COUNT 163 10^3/uL (150-450); RED BLOOD COUNT 4.32 10^6/uL (4.35-5.55); RED CELL DISTRIBUTION WIDTH 14.3 % (11.5-14.0); WHITE BLOOD COUNT 4.8 10^3/uL (4.0-10.5)
[2018-10-22 11:08] LABS: APPEARANCE,URINE SLIGHTLY-CLOUDY; BILIRUBIN,URINE NEGATIVE (NEGATIVE); COLOR,URINE YELLOW; GLUCOSE, URINE NEGATIVE (NEGATIVE); KETONES,URINE NEGATIVE (NEGATIVE); LEUKOCYTE ESTERASE,URINE NEGATIVE (NEGATIVE); NITRITE,URINE NEGATIVE (NEGATIVE); PROTEIN,URINE NEGATIVE (NEGATIVE); URINE SPECIFIC GRAVITY 1.008; UROBILINOGEN,URINE NEGATIVE mg/dL (<2.0)
[2018-10-22 11:27] LABS: ANION GAP 8 (5-19); BLOOD UREA NITROGEN 17 mg/dL (7-20); CALCIUM 10.2 mg/dL (8.4-10.2); CARBON DIOXIDE 35 mmol/L (22-30); CHLORIDE 98 mmol/L (98-107); GLUCOSE 176 mg/dL (75-110); POTASSIUM 3.9 mmol/L (3.6-5.0); SODIUM 140.7 mmol/L (137-145)
[2018-10-22 11:29] LABS: UR PRO/CREAT RATIO RESULT 0.4 mg/mg (0.0-0.2); URINE CREATININE 60.8 mg/dL (22-328); URINE PROTEIN 22.4 mg/dL (<12)
== END ==
LOC: OD 10:15
PROVIDERS: ATTEND Physician Assistant Medical
DX: I12.9 Hypertensive chronic kidney disease with stage 1 through stage 4 chronic kidney disease, or unspecified chronic kidney disease (principal); N18.2 Chronic kidney disease, stage 2 (mild); E11.22 Type 2 diabetes mellitus with diabetic chronic kidney disease; R60.9 Edema, unspecified
CPT/HCPCS: 36415; 80048; 81001; 82570; 84156; 85027

== ENCOUNTER 2018-12-21 10:12 | Emergency (ER) | payer MEDICARE, MEDICAID ==
[2018-12-21] MEDS ORDERED: IPRATROPIUM/ALBUTEROL 0.5-2.5 MG/3 ML AMPUL NEB ONE (10:42)
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
--- NOTE | 2018-12-21 11:03 | RADIOLOGY REPORT (SQ) ---
EXAM DESCRIPTION: CHEST 2 VIEWS COMPLETED DATE/TIME: 12/21/2018 10:51 am REASON FOR STUDY: sob, cough, copd COMPARISON: 05/28/2018. EXAM PARAMETERS: NUMBER OF VIEWS: two views TECHNIQUE: Digital Frontal and Lateral radiographic views of the chest acquired. RADIATION DOSE: NA LIMITATIONS: none FINDINGS: LUNGS AND PLEURA: No acute pulmonary consolidation. Right cardiophrenic angle fat pad, s table finding. No pneumothorax or pleural effusion. MEDIASTINUM AND HILAR STRUCTURES: No masses or contour abnormalities. HEART AND VASCULAR STRUCTURES: Cardiomegaly,with some increase in size since the prior examination. Prominence of the pulmonary vasculature suggest vascular congestion. BONES: No acute findings. HARDWARE: None in the chest. OTHER: No other significant finding. IMPRESSION: 1. Cardiomegaly, with some increase in size since the prior examination dated 05/28/2018 . Prominence of the pulmonary vasculature suggest vascular congestion. 2. No acute pulmonary consolidation. TECHNICAL DOCUMENTATION: JOB ID: [id number] [employer]- All Rights Reserved Reading location - IP/workstation name: [email or web address]
[2018-12-21 11:22] LABS: ABSOLUTE EOSINOPHILS # (AUTO) 0.1 10^3/uL (0.0-0.6); ABSOLUTE MONOCYTES (AUTO) 0.4 10^3/uL (0.1-1.4); ABSOLUTE NEUT (AUTO) 3.4 10^3/uL (1.7-8.2); BASOPHILS % (AUTO) 0.5 % (0-2); EOSINOPHILS % (AUTO) 1.8 % (0-6); HEMATOCRIT 43.7 % (37.9-51.0); HEMOGLOBIN 14.4 g/dL (13.5-17.0); LYMPHOCYTES % (AUTO) 19.5 % (13-45); MEAN CORPUSCULAR HEMOGLOBIN 32.1 pg (27.0-33.4); MEAN CORPUSCULAR VOLUME 98 fl (80-97); PLATELET COUNT 163 10^3/uL (150-450); RED BLOOD COUNT 4.49 10^6/uL (4.35-5.55); RED CELL DISTRIBUTION WIDTH 14.6 % (11.5-14.0); SEGMENTED NEUTROPHILS % (AUTO) 69.2 % (42-78); TOTAL CELLS COUNTED % (AUTO) 100 %
[2018-12-21] MEDS ORDERED: FUROSEMIDE INJ/PF 100 MG/10 ML SDV IV ONE (11:35)
[2018-12-21 11:44] LABS: ALANINE AMINOTRANSFERASE 32 U/L (21-72); ALBUMIN 4.3 g/dL (3.5-5.0); ALKALINE PHOSPHATASE 83 U/L (38-126); ANION GAP 10 (5-19); ASPARTATE AMINO TRANSFERASE 17 U/L (17-59); BILIRUBIN,DIRECT 0.3 mg/dL (0.0-0.4); BLOOD UREA NITROGEN 16 mg/dL (7-20); CALCIUM 10.8 mg/dL (8.4-10.2); CARBON DIOXIDE 32 mmol/L (22-30); CHLORIDE 99 mmol/L (98-107); GLUCOSE 183 mg/dL (75-110); POTASSIUM 3.7 mmol/L (3.6-5.0); SODIUM 141.1 mmol/L (137-145); TOTAL PROTEIN 7.3 g/dL (6.3-8.2)
[2018-12-21 13:49] LABS: TROPONIN I 0.051 ng/mL
[2018-12-21 14:06] VITALS: BP 156/97
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
--- NOTE | 2018-12-21 20:02 | EKG REPORT ---
SEVERITY:- ABNORMAL ECG - SINUS RHYTHM NONSPECIFIC INTRAVENTRICULAR CONDUCTION DELAY ; ATYPICAL LBBB PROBABLE LEFT VENTRICULAR HYPERTROPHY : Confirmed by: Clover Madison MD 21-Dec-2018 20:01:42
== END 2018-12-21 14:06 | disposition home or self-care (01) ==
LOC: ER 10:12
DX: R06.02 Shortness of breath (principal); R09.89 Other specified symptoms and signs involving the circulatory and respiratory systems; Z72.4 Inappropriate diet and eating habits; M54.9 Dorsalgia, unspecified; I50.9 Heart failure, unspecified; I11.0 Hypertensive heart disease with heart failure; E11.9 Type 2 diabetes mellitus without complications; J44.9 Chronic obstructive pulmonary disease, unspecified
CPT/HCPCS: 93005; 94640; 99291; 96374; 36415; 85025; 80053; 84484; 83880; 71046; 93010; J1940; A9270; J7620

== ENCOUNTER → 2018-12-28 | Outpatient (CLI) | payer MEDICARE, MEDICAID ==
[2018-12-28 14:55] LABS: ABSOLUTE EOSINOPHILS # (AUTO) 0.1 10^3/uL (0.0-0.6); ABSOLUTE MONOCYTES (AUTO) 0.3 10^3/uL (0.1-1.4); ABSOLUTE NEUT (AUTO) 2.9 10^3/uL (1.7-8.2); BASOPHILS % (AUTO) 0.7 % (0-2); EOSINOPHILS % (AUTO) 2.3 % (0-6); HEMATOCRIT 42.2 % (37.9-51.0); HEMOGLOBIN 14.1 g/dL (13.5-17.0); LYMPHOCYTES % (AUTO) 22.8 % (13-45); MEAN CORPUSCULAR HEMOGLOBIN 32.2 pg (27.0-33.4); MEAN CORPUSCULAR HGB CONC 33.5 g/dL (32.0-36.0); MEAN CORPUSCULAR VOLUME 96 fl (80-97); MONOCYTES % (AUTO) 7.9 % (3-13); PLATELET COUNT 172 10^3/uL (150-450); RED BLOOD COUNT 4.39 10^6/uL (4.35-5.55); RED CELL DISTRIBUTION WIDTH 14.2 % (11.5-14.0); SEGMENTED NEUTROPHILS % (AUTO) 66.3 % (42-78); TOTAL CELLS COUNTED % (AUTO) 100 %; WHITE BLOOD COUNT 4.3 10^3/uL (4.0-10.5)
[2018-12-28 14:56] LABS: APPEARANCE,URINE SLIGHTLY-CLOUDY; BILIRUBIN,URINE NEGATIVE (NEGATIVE); COLOR,URINE YELLOW; GLUCOSE, URINE NEGATIVE (NEGATIVE); KETONES,URINE NEGATIVE (NEGATIVE); LEUKOCYTE ESTERASE,URINE NEGATIVE (NEGATIVE); NITRITE,URINE NEGATIVE (NEGATIVE); PROTEIN,URINE NEGATIVE (NEGATIVE); UROBILINOGEN,URINE NEGATIVE mg/dL (<2.0)
[2018-12-28 15:17] LABS: ANION GAP 7 (5-19); BLOOD UREA NITROGEN 15 mg/dL (7-20); CALCIUM 10.4 mg/dL (8.4-10.2); CARBON DIOXIDE 35 mmol/L (22-30); CHLORIDE 96 mmol/L (98-107); GLUCOSE 211 mg/dL (75-110); PHOSPHORUS 3.5 mg/dL (2.5-4.5); POTASSIUM 3.9 mmol/L (3.6-5.0); SODIUM 138.4 mmol/L (137-145)
[2018-12-28 15:23] LABS: UR PRO/CREAT RATIO RESULT 0.3 mg/mg (0.0-0.2); URINE CREATININE 113.1 mg/dL (22-328); URINE PROTEIN 33.8 mg/dL (<12)
== END ==
LOC: OD 14:21
PROVIDERS: ATTEND Internal Medicine Nephrology
DX: E11.22 Type 2 diabetes mellitus with diabetic chronic kidney disease (principal); I12.9 Hypertensive chronic kidney disease with stage 1 through stage 4 chronic kidney disease, or unspecified chronic kidney disease; N18.3 Chronic kidney disease, stage 3 (moderate); R60.9 Edema, unspecified; R80.9 Proteinuria, unspecified
CPT/HCPCS: 36415; 80069; 81001; 82306; 82570; 83970; 84156; 85025

== ENCOUNTER 2019-01-17 09:16 | Emergency (ER) | payer MEDICARE, MEDICAID ==
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
[2019-01-17 10:06] LABS: VENOUS BLOOD BASE EXCESS 11.6 mmol/L; VENOUS BLOOD HCO3 39.1 mmol/L (20-32); VENOUS BLOOD PCO2 63.5 mmHg (35-63); VENOUS BLOOD PH 7.41 (7.30-7.42)
[2019-01-17 10:07] LABS: ABSOLUTE EOSINOPHILS # (AUTO) 0.1 10^3/uL (0.0-0.6); ABSOLUTE LYMPHOCYTES (AUTO) 0.9 10^3/uL (0.5-4.7); ABSOLUTE MONOCYTES (AUTO) 0.4 10^3/uL (0.1-1.4); ABSOLUTE NEUT (AUTO) 4.5 10^3/uL (1.7-8.2); BASOPHILS % (AUTO) 0.6 % (0-2); EOSINOPHILS % (AUTO) 2.2 % (0-6); HEMATOCRIT 41.2 % (37.9-51.0); HEMOGLOBIN 13.4 g/dL (13.5-17.0); LYMPHOCYTES % (AUTO) 15.1 % (13-45); MEAN CORPUSCULAR HEMOGLOBIN 31.5 pg (27.0-33.4); MEAN CORPUSCULAR HGB CONC 32.4 g/dL (32.0-36.0); MEAN CORPUSCULAR VOLUME 97 fl (80-97); PLATELET COUNT 184 10^3/uL (150-450); RED BLOOD COUNT 4.24 10^6/uL (4.35-5.55); RED CELL DISTRIBUTION WIDTH 13.9 % (11.5-14.0); SEGMENTED NEUTROPHILS % (AUTO) 75.1 % (42-78); TOTAL CELLS COUNTED % (AUTO) 100 %; WHITE BLOOD COUNT 5.9 10^3/uL (4.0-10.5)
[2019-01-17 10:14] LABS: APPEARANCE,URINE CLEAR; BILIRUBIN,URINE NEGATIVE (NEGATIVE); COLOR,URINE YELLOW; GLUCOSE, URINE NEGATIVE (NEGATIVE); KETONES,URINE NEGATIVE (NEGATIVE); LEUKOCYTE ESTERASE,URINE SMALL (NEGATIVE); NITRITE,URINE NEGATIVE (NEGATIVE); PROTEIN,URINE 100 mg/dL (NEGATIVE); UROBILINOGEN,URINE NEGATIVE mg/dL (<2.0)
[2019-01-17 10:25] LABS: ALANINE AMINOTRANSFERASE 29 U/L (21-72); ALBUMIN 3.9 g/dL (3.5-5.0); ALKALINE PHOSPHATASE 98 U/L (38-126); ANION GAP 9 (5-19); ASPARTATE AMINO TRANSFERASE 14 U/L (17-59); BILIRUBIN,DIRECT 0.2 mg/dL (0.0-0.4); BLOOD UREA NITROGEN 17 mg/dL (7-20); CALCIUM 10.4 mg/dL (8.4-10.2); CARBON DIOXIDE 37 mmol/L (22-30); CHLORIDE 94 mmol/L (98-107); GLUCOSE 154 mg/dL (75-110); TOTAL PROTEIN 6.7 g/dL (6.3-8.2)
[2019-01-17 10:30] LABS: POTASSIUM 2.9 mmol/L (3.6-5.0)
[2019-01-17] MEDS ORDERED: POTASSIUM CHLORIDE 10 MEQ CAPSULE.ER PO ONE (10:36)
[2019-01-17 10:39] LABS: TROPONIN I 0.094 ng/mL
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
[2019-01-17] MEDS: POTASSI CL 20 MEQ/50 ML RIDER 20 MEQ/50 ML RTUPB IV SCH ×2 (10:52→12:27)
--- NOTE | 2019-01-17 10:53 | RADIOLOGY REPORT (SQ) ---
EXAM DESCRIPTION: CHEST SINGLE VIEW COMPLETED DATE/TIME: 01/17/2019 10:31 am REASON FOR STUDY: WRIGHT COMPARISON: Chest films 12/21/2018, 05/28/2018, 09/09/2016 EXAM PARAMETERS: NUMBER OF VIEWS: One view. TECHNIQUE: Single frontal radiographic view of the chest acquired. RADIATION DOSE: NA LIMITATIONS: None. FINDINGS: LUNGS AND PLEURA: No opacities, masses or pneumothorax. No pleural effusion. MEDIASTINUM AND HILAR STRUCTURES: No masses. Contour normal. HEART AND VASCULAR STRUCTURES: Stable marked cardiomegaly BONES: No acute findings. HARDWARE: None in the chest. OTHER: No other significant finding. IMPRESSION: Stable marked cardiomegaly. No acute findings TECHNICAL DOCUMENTATION: JOB ID: [id number] [employer]- All Rights Reserved Reading location - IP/workstation name: [email or web address]
[2019-01-17] MEDS ORDERED: FUROSEMIDE INJ/PF 100 MG/10 ML SDV IV ONE (11:13)
[2019-01-17 16:04] VITALS: BP 127/98
--- NOTE | 2019-01-17 23:45 | EKG REPORT ---
SEVERITY:- ABNORMAL ECG - SINUS RHYTHM MULTIPLE ATRIAL PREMATURE COMPLEXES IVCD, CONSIDER ATYPICAL LBBB : Confirmed by: Clover Madison MD 17-Jan-2019 23:44:57
== END 2019-01-17 16:10 | disposition home or self-care (01) ==
LOC: ER 09:16
DX: I13.0 Hypertensive heart and chronic kidney disease with heart failure and stage 1 through stage 4 chronic kidney disease, or unspecified chronic kidney disease (principal); E11.22 Type 2 diabetes mellitus with diabetic chronic kidney disease; N18.3 Chronic kidney disease, stage 3 (moderate); I50.9 Heart failure, unspecified; R60.0 Localized edema; I49.1 Atrial premature depolarization; I25.10 Atherosclerotic heart disease of native coronary artery without angina pectoris; J44.9 Chronic obstructive pulmonary disease, unspecified; R06.02 Shortness of breath; Z79.899 Other long term (current) drug therapy; Z88.1 Allergy status to other antibiotic agents; Z88.8 Allergy status to other drugs, medicaments and biological substances
CPT/HCPCS: 93005; 99285; 96375; 96365; 96366; 36415; 83735; 85025; 80053; 81001; 84484; 82803; 83880; 71045; 93010; J1940; J3480; A9270

== ENCOUNTER → 2019-01-29 | Outpatient (CLI) | payer MEDICARE, MEDICAID ==
[2019-01-29 14:35] LABS: APPEARANCE,URINE CLEAR; BILIRUBIN,URINE NEGATIVE (NEGATIVE); COLOR,URINE YELLOW; GLUCOSE, URINE NEGATIVE (NEGATIVE); KETONES,URINE NEGATIVE (NEGATIVE); LEUKOCYTE ESTERASE,URINE NEGATIVE (NEGATIVE); NITRITE,URINE NEGATIVE (NEGATIVE); PROTEIN,URINE NEGATIVE (NEGATIVE); URINE SPECIFIC GRAVITY 1.008; UROBILINOGEN,URINE NEGATIVE mg/dL (<2.0)
[2019-01-29 14:46] LABS: HEMATOCRIT 42.2 % (37.9-51.0); HEMOGLOBIN 13.7 g/dL (13.5-17.0); MEAN CORPUSCULAR HEMOGLOBIN 31.4 pg (27.0-33.4); MEAN CORPUSCULAR HGB CONC 32.4 g/dL (32.0-36.0); MEAN CORPUSCULAR VOLUME 97 fl (80-97); PLATELET COUNT 213 10^3/uL (150-450); RED BLOOD COUNT 4.35 10^6/uL (4.35-5.55); RED CELL DISTRIBUTION WIDTH 13.7 % (11.5-14.0); WHITE BLOOD COUNT 5.2 10^3/uL (4.0-10.5)
[2019-01-29 15:09] LABS: ANION GAP 11 (5-19); BLOOD UREA NITROGEN 21 mg/dL (7-20); CALCIUM 10.9 mg/dL (8.4-10.2); CARBON DIOXIDE 38 mmol/L (22-30); CHLORIDE 94 mmol/L (98-107); GLUCOSE 148 mg/dL (75-110); POTASSIUM 3.3 mmol/L (3.6-5.0); SODIUM 142.8 mmol/L (137-145)
== END ==
LOC: OD 13:54
PROVIDERS: ATTEND Physician Assistant Medical
DX: I12.9 Hypertensive chronic kidney disease with stage 1 through stage 4 chronic kidney disease, or unspecified chronic kidney disease (principal); N18.3 Chronic kidney disease, stage 3 (moderate); E11.22 Type 2 diabetes mellitus with diabetic chronic kidney disease; E87.5 Hyperkalemia; R60.9 Edema, unspecified
CPT/HCPCS: 36415; 80048; 81001; 85027

== ENCOUNTER 2019-02-10 01:55 | Inpatient (IN) | payer MEDICARE, MEDICAID ==
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
[2019-02-10] MEDS ORDERED: ALBUTEROL SULFATE 0.083% NEB 2.5 MG/3 ML AMPUL NEB ONE (02:33)
[2019-02-10] MEDS ORDERED: IPRATROPIUM/ALBUTEROL 0.5-2.5 MG/3 ML AMPUL NEB ONE (02:38)
[2019-02-10] MEDS ORDERED: METHYLPREDNISOLONE INJ 125 MG/2 ML SDV IV ONE (02:43)
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
[2019-02-10 03:01] LABS: ABSOLUTE EOSINOPHILS # (AUTO) 0.1 10^3/uL (0.0-0.6); ABSOLUTE LYMPHOCYTES (AUTO) 0.8 10^3/uL (0.5-4.7); ABSOLUTE MONOCYTES (AUTO) 0.4 10^3/uL (0.1-1.4); ABSOLUTE NEUT (AUTO) 4.5 10^3/uL (1.7-8.2); BASOPHILS % (AUTO) 0.6 % (0-2); HEMATOCRIT 40.4 % (37.9-51.0); HEMOGLOBIN 13.3 g/dL (13.5-17.0); LYMPHOCYTES % (AUTO) 14.1 % (13-45); MEAN CORPUSCULAR HEMOGLOBIN 31.9 pg (27.0-33.4); MEAN CORPUSCULAR VOLUME 96 fl (80-97); MONOCYTES % (AUTO) 6.6 % (3-13); PLATELET COUNT 176 10^3/uL (150-450); RED BLOOD COUNT 4.19 10^6/uL (4.35-5.55); RED CELL DISTRIBUTION WIDTH 14.1 % (11.5-14.0); SEGMENTED NEUTROPHILS % (AUTO) 77.7 % (42-78); TOTAL CELLS COUNTED % (AUTO) 100 %; WHITE BLOOD COUNT 5.8 10^3/uL (4.0-10.5)
[2019-02-10 03:30] LABS: ALANINE AMINOTRANSFERASE 32 U/L (21-72); ALBUMIN 4.1 g/dL (3.5-5.0); ALKALINE PHOSPHATASE 100 U/L (38-126); ANION GAP 10 (5-19); ASPARTATE AMINO TRANSFERASE 21 U/L (17-59); BILIRUBIN,DIRECT 0.3 mg/dL (0.0-0.4); BILIRUBIN,TOTAL 1.7 mg/dL (0.2-1.3); BLOOD UREA NITROGEN 18 mg/dL (7-20); CALCIUM 10.5 mg/dL (8.4-10.2); CARBON DIOXIDE 37 mmol/L (22-30); CHLORIDE 94 mmol/L (98-107); GLUCOSE 155 mg/dL (75-110); POTASSIUM 3.2 mmol/L (3.6-5.0); TOTAL PROTEIN 6.8 g/dL (6.3-8.2)
[2019-02-10 03:38] LABS: TROPONIN I 0.083 ng/mL
--- NOTE | 2019-02-10 04:53 | RADIOLOGY REPORT (SQ) ---
EXAM DESCRIPTION: XR CHEST 1 VIEW COMPLETED DATE/TME: 02/10/2019 03:33 CLINICAL HISTORY: 63 years Male, shortness of breath COMPARISON: 09/09/16 NUMBER OF VIEWS/TECHNIQUE: 1/AP FINDINGS: Adequate lung volume, pulmonary vascular congestion, moderate-severe enlargement of the cardiac silhouette, and intact bony thorax. IMPRESSION: Moderate to severe cardiac enlargement and pulmonary vascular congestion. Differential diagnosis includes CHF.
[2019-02-10 05:07] LABS: VENOUS BLOOD BASE EXCESS 10.8 mmol/L; VENOUS BLOOD HCO3 42.1 mmol/L (20-32); VENOUS BLOOD PCO2 94.6 mmHg (35-63); VENOUS BLOOD PH 7.27 (7.30-7.42)
[2019-02-10] MEDS ORDERED: FUROSEMIDE INJ/PF 40 MG/4 ML SDV IV ONE (05:12)
--- NOTE | 2019-02-10 07:45 | EKG REPORT ---
SEVERITY:- ABNORMAL ECG - RHYTHM LIKELY STILL SINUS WITH PAC. IVCD. : Confirmed by: Kendell Adhikari MD 10-Feb-2019 07:45:14
[2019-02-10] MEDS: LACTULOSE SYRUP 20 GM/30 ML UDCUP PO SCH (10:01)
[2019-02-10] MEDS: FUROSEMIDE INJ/PF 40 MG/4 ML SDV IV SCH ×2 (10:01→21:24)
[2019-02-10] MEDS: GABAPENTIN 300 MG CAPSULE PO SCH ×3 (10:01→21:23)
[2019-02-10] MEDS: ENOXAPARIN SODIUM INJ 30 MG/0.3 ML DISP.SYRIN SUBCUT SCH (10:01)
[2019-02-10] MEDS: POTASSIUM CHLORIDE 10 MEQ CAPSULE.ER PO SCH (10:02)
[2019-02-10] MEDS: CLOPIDOGREL BISULFATE 75 MG TABLET PO SCH (10:03)
[2019-02-10] MEDS: FAMOTIDINE 20 MG TABLET PO SCH ×2 (10:03→21:23)
[2019-02-10] MEDS ORDERED: HYDRALAZINE HCL 50 MG TABLET PO SCH (18:00)
[2019-02-10] MEDS: ALLOPURINOL 300 MG TABLET PO SCH (18:14)
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
[2019-02-10] MEDS: ATORVASTATIN CALCIUM 80 MG TABLET PO SCH (21:23)
[2019-02-10] MEDS: LATANOPROST 0.005% OPH SOLN 2.5 ML OU SCH (21:24)
[2019-02-11 05:24] LABS: ANION GAP 12 (5-19); BLOOD UREA NITROGEN 32 mg/dL (7-20); CALCIUM 9.8 mg/dL (8.4-10.2); CARBON DIOXIDE 36 mmol/L (22-30); CHLORIDE 94 mmol/L (98-107); CHOLESTEROL 109.64 mg/dL (0-200); GLUCOSE 154 mg/dL (75-110); POTASSIUM 3.9 mmol/L (3.6-5.0); SODIUM 142.3 mmol/L (137-145); TRIGLYCERIDES 82 mg/dL (<150)
[2019-02-11 05:35] LABS: DIRECT LDL 60 mg/dL (<100)
[2019-02-11] MEDS: GABAPENTIN 300 MG CAPSULE PO SCH ×3 (05:51→21:23)
[2019-02-11] MEDS ORDERED: DEXTROSE 50%-WATER 25 GM/50 ML DISP.SYRIN IV PRN ×2 (07:16)
[2019-02-11] MEDS ORDERED: DEXTROSE 40% GEL 15 GM TUBE PO PRN ×2 (07:16)
[2019-02-11] MEDS ORDERED: GLUCAGON,HUMAN RECOMB 1 MG INJ IM PRN (07:16)
--- NOTE | 2019-02-11 07:20 | PDOC PROGRESS REPORT ---
Subjective Progress Note for:: 02/11/19 Subjective:: less dyspnea on cpap. Bipap unavailable. Reason For Visit: HEART FAILURE Physical Exam Vital Signs: Temp Pulse Resp BP Pulse Ox 97.3 F 88 24 H 116/70 95 02/11/19 03:36 02/11/19 03:36 02/11/19 03:36 02/11/19 03:36 02/11/19 03:36 Intake & Output 02/09/19 02/10/19 02/11/19 07:59 07:59 07:59 Intake Total 462 Output Total 450 625 Balance -450 -163 Weight 366 lb 380 lb 1.231 oz General appearance: PRESENT: no acute distress Respiratory exam: PRESENT: clear to auscultation caden Cardiovascular exam: ABSENT: diastolic murmur, irregular rhythm, systolic murmur GI/Abdominal exam: ABSENT: mass, organolmegaly, tenderness Extremities exam: PRESENT: pedal edema - R2+ L3+ Neurological exam: PRESENT: oriented to situation Psychiatric exam: PRESENT: depressed Results Laboratory Results: 02/11/19 04:04 Sodium 142.3 Potassium 3.9 Chloride 94 L Carbon Dioxide 36 H Anion Gap 12 BUN 32 H Creatinine 1.86 H Est GFR ( Amer) 45 L Est GFR (Non-Af Amer) 37 L Glucose 154 H Calcium 9.8 Triglycerides 82 Cholesterol 109.64 LDL Cholesterol Direct 60 VLDL Cholesterol 16.0 HDL Cholesterol 39 L Impressions: Chest X-Ray 02/10/19 03:33 IMPRESSION: Moderate to severe cardiac enlargement and pulmonary vascular congestion. Differential diagnosis includes CHF. Assessment & Plan - Diagnosis (1) Hypercapnic respiratory failure Qualifiers: Chronicity: acute Qualified Code(s): J96.02 - Acute respiratory failure with hypercapnia Is this a current diagnosis for this admission?: Yes Plan: improved with chf control & cpap. Needs bipap at home before discharge. (2) Chronic combined systolic and diastolic heart failure Is this a current diagnosis for this admission?: Yes Plan: in500 hvq034 up?16#. BUN 18,32 cr 1.8,1.9 K3.2,3.9 cc103. Stopped amlodipine. Added hydralazine. Entresto & bidil are expensive alternatives. Entresto may worsen renal function. I will decrease hydralazine to 25bid. In 2003 ntg 0.4mg caused shock. I will not try imdur or bidil now. (3) Idiopathic chronic gout of multiple sites without tophus Is this a current diagnosis for this admission?: Yes (4) Obstructive sleep apnea Is this a current diagnosis for this admission?: Yes (5) Type 2 diabetes mellitus with diabetic chronic kidney disease Qualifiers: Diabetes mellitus long-term insulin use: without long-term use Chronic kidney disease stage: stage 4 (severe) Qualified Code(s): E11.22 - Type 2 diabetes mellitus with diabetic chronic kidney disease; N18.4 - Chronic kidney disease, stage 4 (severe) Is this a current diagnosis for this admission?: Yes Plan: LDL60 A1c8.1 up from 7.1. Was on only glimepiride 6835-1325. Half mg in the end. Will try again. - Inpatient Certification Medical Necessity: Failure to Improve With Outpatient Therapy, Significant Comorbidiites Make Outpatient Treatment Too Risky, Need Close Monitoring Due to Risk of Patient Decompensation, Need For Continuous Telemetry Monitoring, Risk of Complication if Not Cared For in Hospital, Risk of Diagnosis Which Will Require Inpatient Eval/Care/Monitoring
[2019-02-11] MEDS: INSULIN REG, HUMAN 100 UNIT/ML 3 ML VIAL (PYX) SUBCUT SCH ×4 (08:31→21:19)
[2019-02-11] MEDS: GLIMEPIRIDE 1 MG TABLET PO SCH (09:28)
[2019-02-11] MEDS: POTASSIUM CHLORIDE 10 MEQ CAPSULE.ER PO SCH (09:29)
[2019-02-11] MEDS: FUROSEMIDE INJ/PF 40 MG/4 ML SDV IV SCH ×2 (09:30→21:24)
[2019-02-11] MEDS: FAMOTIDINE 20 MG TABLET PO SCH ×2 (09:30→21:23)
[2019-02-11] MEDS: ENOXAPARIN SODIUM INJ 30 MG/0.3 ML DISP.SYRIN SUBCUT SCH (09:30)
[2019-02-11] MEDS: ASPIRIN 81 MG TABLET, CHEWABLE PO SCH (09:30)
[2019-02-11] MEDS: LACTULOSE SYRUP 20 GM/30 ML UDCUP PO SCH (09:30)
[2019-02-11] MEDS: CLOPIDOGREL BISULFATE 75 MG TABLET PO SCH (09:30)
[2019-02-11] MEDS: HYDRALAZINE HCL 25 MG TABLET PO SCH ×2 (09:44→21:23)
[2019-02-11] MEDS: IPRATROPIUM/ALBUTEROL 0.5-2.5 MG/3 ML AMPUL NEB SCH ×2 (15:40→23:57)
[2019-02-11] MEDS: ALLOPURINOL 300 MG TABLET PO SCH (17:35)
[2019-02-11] MEDS: ATORVASTATIN CALCIUM 80 MG TABLET PO SCH (21:23)
[2019-02-11] MEDS: LATANOPROST 0.005% OPH SOLN 2.5 ML OU SCH (21:24)
--- NOTE | 2019-02-11 21:33 | EKG REPORT ---
SEVERITY:- ABNORMAL ECG - SINUS RHYTHM MULTIPLE ATRIAL PREMATURE COMPLEXES NONSPECIFIC INTRAVENTRICULAR CONDUCTION DELAY BORDERLINE ST DEPRESSION, INFERIOR LEADS : Confirmed by: Kendell Adhikari MD 11-Feb-2019 21:32:35
[2019-02-12] MEDS: GABAPENTIN 300 MG CAPSULE PO SCH ×3 (05:13→22:04)
--- NOTE | 2019-02-12 07:14 | EKG REPORT ---
SEVERITY:- ABNORMAL ECG - SINUS RHYTHM FIRST DEGREE AV BLOCK IVCD, CONSIDER ATYPICAL LBBB : Confirmed by: Kendell Adhikari MD 12-Feb-2019 07:12:34
[2019-02-12 07:36] LABS: ANION GAP 9 (5-19); BLOOD UREA NITROGEN 35 mg/dL (7-20); CALCIUM 10.3 mg/dL (8.4-10.2); CARBON DIOXIDE 39 mmol/L (22-30); CHLORIDE 95 mmol/L (98-107); GLUCOSE 127 mg/dL (75-110); POTASSIUM 3.8 mmol/L (3.6-5.0); SODIUM 142.7 mmol/L (137-145)
[2019-02-12] MEDS: IPRATROPIUM/ALBUTEROL 0.5-2.5 MG/3 ML AMPUL NEB SCH ×2 (08:17→15:52)
[2019-02-12] MEDS: INSULIN REG, HUMAN 100 UNIT/ML 3 ML VIAL (PYX) SUBCUT SCH ×4 (08:36→22:04)
--- NOTE | 2019-02-12 08:40 | PDOC PROGRESS REPORT ---
Subjective Progress Note for:: 02/12/19 Subjective:: has [employer] medicare advantage and is restricted on DME suppliers. Old BIPAP broke. Dr Kiran did last sleep study and will bring report to chart today. Reason For Visit: HEART FAILURE Physical Exam Vital Signs: Temp Pulse Resp BP Pulse Ox 97.4 F 87 20 114/72 93 02/12/19 04:22 02/12/19 07:00 02/12/19 04:22 02/12/19 04:22 02/12/19 04:22 Intake & Output 02/11/19 02/12/19 02/13/19 07:59 07:59 07:59 Intake Total 462 1146 Output Total 625 1800 Balance -163 -654 Weight 380 lb 1.231 oz 379 lb 3.121 oz General appearance: PRESENT: no acute distress Respiratory exam: PRESENT: wheezes - minimal anterior on forced expiration Cardiovascular exam: ABSENT: diastolic murmur, irregular rhythm, systolic murmur GI/Abdominal exam: ABSENT: mass, organolmegaly, tenderness Extremities exam: PRESENT: pedal edema - R1+ L 2+ Neurological exam: PRESENT: oriented to situation Psychiatric exam: PRESENT: appropriate affect Results Laboratory Results: 02/10/19 02:40 02/12/19 07:06 02/12/19 07:06 Sodium 142.7 Potassium 3.8 Chloride 95 L Carbon Dioxide 39 H Anion Gap 9 BUN 35 H Creatinine 1.76 H Est GFR ( Amer) 48 L Est GFR (Non-Af Amer) 39 L Glucose 127 H Calcium 10.3 H 02/10/19 02/11/19 02/12/19 02:40 19:21 02:17 Troponin I 0.083 0.084 0.086 NT-Pro-B Natriuret Pep 3050 H 02/12/19 07:06 Troponin I 0.079 NT-Pro-B Natriuret Pep Impressions: Chest X-Ray 02/10/19 03:33 IMPRESSION: Moderate to severe cardiac enlargement and pulmonary vascular congestion. Differential diagnosis includes CHF. Assessment & Plan - Diagnosis (1) Hypercapnic respiratory failure Qualifiers: Chronicity: acute Qualified Code(s): J96.02 - Acute respiratory failure with hypercapnia Is this a current diagnosis for this admission?: Yes Plan: cant leave without new bipap in house. Now on human[employer] medicare advantage with narrow DME vendor list. Dr Kiran will put last sleep study on chart today. (2) Chronic combined systolic and diastolic heart failure Is this a current diagnosis for this admission?: Yes Plan: bun35 cr1.8. Not diuresing. Restrict fluid to 1L. (3) Idiopathic chronic gout of multiple sites without tophus Is this a current diagnosis for this admission?: Yes (4) Obstructive sleep apnea Is this a current diagnosis for this admission?: Yes (5) Type 2 diabetes mellitus with diabetic chronic kidney disease Qualifiers: Diabetes mellitus custodial insulin use: without custodial use Chronic kidney disease stage: stage 4 (severe) Qualified Code(s): E11.22 - Type 2 diabetes mellitus with diabetic chronic kidney disease; N18.4 - Chronic kidney disease, stage 4 (severe) Is this a current diagnosis for this admission?: Yes - Inpatient Certification Medical Necessity: Failure to Improve With Outpatient Therapy, Significant Comorbidiites Make Outpatient Treatment Too Risky, Need Close Monitoring Due to Risk of Patient Decompensation, Need For Continuous Telemetry Monitoring, Need for Nebulizer Therapy and Monitoring of Response, Risk of Complication if Not Cared For in Hospital, Risk of Diagnosis Which Will Require Inpatient Eval/Care/Monitoring
[2019-02-12] MEDS: ASPIRIN 81 MG TABLET, CHEWABLE PO SCH (08:43)
[2019-02-12] MEDS: GLIMEPIRIDE 1 MG TABLET PO SCH (08:43)
[2019-02-12] MEDS: HYDRALAZINE HCL 25 MG TABLET PO SCH (09:23)
[2019-02-12] MEDS: CLOPIDOGREL BISULFATE 75 MG TABLET PO SCH (09:23)
[2019-02-12] MEDS: FUROSEMIDE INJ/PF 40 MG/4 ML SDV IV SCH ×2 (09:23→22:05)
[2019-02-12] MEDS: LACTULOSE SYRUP 20 GM/30 ML UDCUP PO SCH (09:23)
[2019-02-12] MEDS: POTASSIUM CHLORIDE 10 MEQ CAPSULE.ER PO SCH (09:23)
[2019-02-12] MEDS: FAMOTIDINE 20 MG TABLET PO SCH ×2 (09:23→22:04)
[2019-02-12] MEDS: ENOXAPARIN SODIUM INJ 30 MG/0.3 ML DISP.SYRIN SUBCUT SCH (09:23)
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
[2019-02-12] MEDS: ALLOPURINOL 300 MG TABLET PO SCH (17:21)
--- NOTE | 2019-02-12 21:40 | Progress Note ---
Provider Note Provider Note: CARDIOLOGY PROGRESS NOTE by Dr. Clover Madison on 02/12/2019. SUBJECTIVE: The patient states as long as he wears the BiPAP he has no shortness of breath. He is got chronic orthopnea. His leg edema is much improved. It is only mild now. The patient denies any wheezing or cough. There is no PND. There is no chest pain or discomfort. There is no arrhythmia seen on the monitor. PHYSICAL EXAMINATION: The patient is morbidly obese. He is sitting up in bed in no acute distress. Selected Entries 02/12/19 07:10 Temperature 98.2 F Temperature Oral Source Pulse Rate 92 Respiratory 31 H Rate Blood Pressure 135/88 H Blood Pressure 103 Mean BP Location Right Arm BP Position Sitting O2 Sat by Pulse 97 Oximetry Oxygen Flow 4.00 Rate Oxygen Delivery Nasal Cannula Method HEAD: Is atraumatic normocephalic. EYES: Pupils equal round regular reactive to light accommodation. Extraocular movements are normal. There is no conjunctival pallor. There is no scleral icterus. NOSE: There is hemoglobin is intact. There is no deviated nasal septum. EARS: Tympanic membranes are intact. External auditory canals are clear. THROAT: There is no redness of the oropharynx. There is no exudates. SKIN: There is no skin rashes or skin lesions. NECK: Is supple. There is no JVD. Carotids are equal there is no bruits. THERE is no accessory muscles of respiration use. Trachea central. LUNGS: There is diminished air entry prolonged expiration. On percussion there is hyperresonance. There is no rhonchi rales or wheezing. HEART: S1-S2 is heard there is no S3 gallop there is no S4 gallop there is no S3 gallop. There is systolic murmur left sternal border and the apex there is no rub. ABDOMEN: Is morbidly obese. There is no hepatospleno megaly. Bowel sounds are well heard. There is no tender areas masses. EXTREMITIES: Femorals are difficult to palpate. There is no femoral bruits. Leg pulses are very difficult to palpate. There is mild pedal edema with chronic venous stasis dermatitis changes. There is no evidence of cellulitis. There is no DVT. There is no cyanosis or clubbing. BREAST SPLITTER: The patient is conscious awake alert oriented x3 with no focal deficits. PSYCHIATRIC: The patient judgment insight are intact his affect is normal. Labs- All tests 24 hr 02/12/19 02/12/19 02/12/19 02:17 07:06 07:06 Sodium 142.7 Potassium 3.8 Chloride 95 L Carbon Dioxide 39 H Anion Gap 9 BUN 35 H Creatinine 1.76 H Est GFR ( Amer) 48 L Est GFR (Non-Af Amer) 39 L Glucose 127 H POC Glucose Calcium 10.3 H Troponin I 0.086 0.079 02/12/19 02/12/19 02/12/19 07:38 11:19 15:46 Sodium Potassium Chloride Carbon Dioxide Anion Gap BUN Creatinine Est GFR ( Amer) Est GFR (Non-Af Amer) Glucose POC Glucose 122 H 229 H 86 Calcium Troponin I Chest X-Ray 02/10/19 03:33 IMPRESSION: Moderate to severe cardiac enlargement and pulmonary vascular congestion. Differential diagnosis includes CHF. The patient's echocardiogram done on the fifth shows severely reduced LV ejection fraction with LV dilatation. There is mild to mild pulmonary hypertension. IMPRESSION / RECOMMENDATION: 1. Acute on chronic congestive heart failure. This is due to acute on chronic systolic heart failure. At present seems to be compensated. Continue current diuretics and current treatment. Since his heart failure is compensated at present will start the patient on Toprol-XL 25 mg p.o. every 12 hours and increase as tolerated. We will also start the patient on hydralazine 10 mg p.o. every 8 hours we will also add a small dose of losartan at 25 mg p.o. every 12 hours. Will watch his renal function. Continue diuretics. 2. Cardiomyopathy with severely reduced LV ejection fraction. We will start the gold standard treatment for cardiomyopathy. Would recommend that the patient have a repeat echocardiogram in 3 months, and if still LV ejection fraction is 35% or below then would refer the patient for AICD placement. The patient has no history of sudden . And there is no ventricular arrhythmia seen on the monitor. Also the patient is morbidly obese and I am not sure if there is a life jacket that would fit the patient but will discuss with the [facility] hr representative 3. Hypertension: Well controlled we will stop the patient's amlodipine, since this may increase the patient's leg swelling. 4. Chronic kidney disease stage III. Nephrology on the case. 5. Obstructive sleep apnea: Note that the patient CPAP been machine is not functional. Also the form that the patient got her CPAP have moved out of town down. Hence will try to get the patient a replacement CPAP. His sleep study from 3 years ago has been obtained. This is on the chart. 6. History of asthma/COPD: At present compensated and at baseline. 7. Morbid obesity. MEDICATIONS reviewed. Medication changed management plan discussed with Dr. Garrett the attending physician. 40 minutes spent on this patient with more than 50% time spent under patient care. Medical decision making is of high complexity in view of the need to add medications and also formulated plan for the patient. Discussed the need for repeat echocardiogram, and the rationale behind the treatment of medications with the patient, and his echo findings of also been discussed in detail. Note the patient is a full code. His fiance is his surrogate healthcare decision maker will follow 4.
[2019-02-12] MEDS: ATORVASTATIN CALCIUM 80 MG TABLET PO SCH (22:04)
[2019-02-12] MEDS: LOSARTAN POTASSIUM 25 MG TABLET PO SCH (23:57)
[2019-02-12] MEDS: HYDRALAZINE HCL 10 MG TABLET PO SCH (23:58)
[2019-02-12] MEDS: METOPROLOL SUCCINATE 25 MG TAB.SR.24H PO SCH (23:58)
[2019-02-12] MEDS: LATANOPROST 0.005% OPH SOLN 2.5 ML OU SCH (23:58)
[2019-02-13] MEDS: IPRATROPIUM/ALBUTEROL 0.5-2.5 MG/3 ML AMPUL NEB SCH ×4 (00:05→23:24)
[2019-02-13 05:09] LABS: BLOOD UREA NITROGEN 33 mg/dL (7-20); CALCIUM 10.6 mg/dL (8.4-10.2); CHLORIDE 95 mmol/L (98-107); GLUCOSE 120 mg/dL (75-110); POTASSIUM 3.9 mmol/L (3.6-5.0); SODIUM 143.7 mmol/L (137-145)
[2019-02-13 05:27] LABS: ANION GAP 10 (5-19)
[2019-02-13 05:29] LABS: CARBON DIOXIDE 39 mmol/L (22-30)
[2019-02-13] MEDS: HYDRALAZINE HCL 10 MG TABLET PO SCH ×3 (06:04→21:11)
[2019-02-13] MEDS: GABAPENTIN 300 MG CAPSULE PO SCH ×3 (06:07→21:15)
[2019-02-13] MEDS: INSULIN REG, HUMAN 100 UNIT/ML 3 ML VIAL (PYX) SUBCUT SCH ×4 (08:11→22:23)
[2019-02-13] MEDS: GLIMEPIRIDE 1 MG TABLET PO SCH (08:39)
[2019-02-13] MEDS: ASPIRIN 81 MG TABLET, CHEWABLE PO SCH (08:39)
[2019-02-13] MEDS: LACTULOSE SYRUP 20 GM/30 ML UDCUP PO SCH (10:07)
[2019-02-13] MEDS: POTASSIUM CHLORIDE 10 MEQ CAPSULE.ER PO SCH (10:08)
[2019-02-13] MEDS: FAMOTIDINE 20 MG TABLET PO SCH ×2 (10:08→21:16)
[2019-02-13] MEDS: FUROSEMIDE INJ/PF 40 MG/4 ML SDV IV SCH ×2 (10:08→21:16)
[2019-02-13] MEDS: METOPROLOL SUCCINATE 25 MG TAB.SR.24H PO SCH ×2 (10:08→21:15)
[2019-02-13] MEDS: LOSARTAN POTASSIUM 25 MG TABLET PO SCH ×2 (10:08→21:11)
[2019-02-13] MEDS: ENOXAPARIN SODIUM INJ 30 MG/0.3 ML DISP.SYRIN SUBCUT SCH (10:08)
[2019-02-13] MEDS: CLOPIDOGREL BISULFATE 75 MG TABLET PO SCH (10:08)
--- NOTE | 2019-02-13 10:49 | PDOC PROGRESS REPORT ---
Subjective Progress Note for:: 02/13/19 Subjective:: less dyspnea Reason For Visit: HEART FAILURE Physical Exam Vital Signs: Temp Pulse Resp BP Pulse Ox 97.3 F 88 22 H 127/79 H 90 L 02/13/19 07:38 02/13/19 07:44 02/13/19 07:44 02/13/19 07:38 02/13/19 07:44 Intake & Output 02/12/19 02/13/19 02/14/19 07:59 07:59 07:59 Intake Total 1146 1154 Output Total 1800 1925 Balance -654 771 Weight 379 lb 3.121 oz 379 lb 3.121 oz General appearance: PRESENT: no acute distress Respiratory exam: PRESENT: clear to auscultation caden Cardiovascular exam: ABSENT: diastolic murmur, irregular rhythm, systolic murmur GI/Abdominal exam: ABSENT: mass, organolmegaly, tenderness Extremities exam: PRESENT: pedal edema - 3+ Neurological exam: PRESENT: oriented to situation Psychiatric exam: PRESENT: appropriate affect Results Laboratory Results: 02/10/19 02:40 02/13/19 04:01 02/13/19 04:01 Sodium 143.7 Potassium 3.9 Chloride 95 L Carbon Dioxide 39 H Anion Gap 10 BUN 33 H Creatinine 1.61 H Est GFR ( Amer) 53 L Est GFR (Non-Af Amer) 44 L Glucose 120 H Calcium 10.6 H Impressions: Chest X-Ray 02/10/19 03:33 IMPRESSION: Moderate to severe cardiac enlargement and pulmonary vascular congestion. Differential diagnosis includes CHF. Assessment & Plan - Diagnosis (1) Hypercapnic respiratory failure Qualifiers: Chronicity: acute Qualified Code(s): J96.02 - Acute respiratory failure with hypercapnia Is this a current diagnosis for this admission?: Yes Plan: Dr Kiran brought bipap titration study. finished goods planner will submit to [employer] for new home machine. (2) Chronic combined systolic and diastolic heart failure Is this a current diagnosis for this admission?: Yes Plan: Dr Hurst added hydralazine toprol & losartan. Creatinine improving. Stop KCl. (3) Idiopathic chronic gout of multiple sites without tophus Is this a current diagnosis for this admission?: Yes (4) Obstructive sleep apnea Is this a current diagnosis for this admission?: Yes (5) Type 2 diabetes mellitus with diabetic chronic kidney disease Qualifiers: Diabetes mellitus fci insulin use: without fci use Chronic kidney disease stage: stage 4 (severe) Qualified Code(s): E11.22 - Type 2 diabetes mellitus with diabetic chronic kidney disease; N18.4 - Chronic kidney disease, stage 4 (severe) Is this a current diagnosis for this admission?: Yes
[2019-02-13] MEDS: ALLOPURINOL 300 MG TABLET PO SCH (17:35)
[2019-02-13] MEDS: ATORVASTATIN CALCIUM 80 MG TABLET PO SCH (21:14)
--- NOTE | 2019-02-13 22:21 | Progress Note ---
Provider Note Provider Note: CARDIOLOGY PROGRESS NOTE by Dr. Clover Correa on 02/13/2019. SUBJECTIVE: The patient denies any shortness of breath at rest. He denies any chest pain or discomfort. There is no PND. He has chronic orthopnea is chronic 2+ pedal edema. There is chronic venous stasis dermatitis changes. There is no arrhythmia seen on the monitor. The social media analyst is working on trying to get the patient BiPAP for use at home. There is no TIA CVA symptoms. PHYSICAL EXAMINATION: The patient morbidly obese. He is well-groomed. No acute distress. Selected Entries 02/13/19 11:56 Temperature 97.5 F Temperature Oral Source Pulse Rate 64 Respiratory 19 Rate Blood Pressure 119/70 Blood Pressure 86 Mean BP Location Left Arm BP Position Sitting O2 Sat by Pulse 97 Oximetry Oxygen Flow 4.00 Rate Oxygen Delivery Nasal Cannula Method HEAD: Is atraumatic normocephalic. EYES: Pupils equal round regular reactive to light accommodation. Extraocular movements are normal. There is no conjunctival pallor. There is no scleral icterus. NOSE: There is hemoglobin is intact. There is no deviated nasal septum. EARS: Tympanic membranes are intact. External auditory canals are clear. THROAT: There is no redness of the oropharynx. There is no exudates. SKIN: There is no skin rashes or skin lesions. NECK: Is supple. There is no JVD. Carotids are equal there is no bruits. THERE is no accessory muscles of respiration use. Trachea central. LUNGS: There is diminished air entry prolonged expiration. On percussion there is hyperresonance. There is no rhonchi rales or wheezing. HEART: S1-S2 is heard there is no S3 gallop there is no S4 gallop there is no S3 gallop. There is systolic murmur left sternal border and the apex there is no rub. ABDOMEN: Is morbidly obese. There is no hepatospleno megaly. Bowel sounds are well heard. There is no tender areas masses. EXTREMITIES: Femorals are difficult to palpate. There is no femoral bruits. Leg pulses are very difficult to palpate. There is 2 + pedal edema with chronic venous stasis dermatitis changes. There is no evidence of cellulitis. There is no DVT. There is no cyanosis or clubbing. GAS CUTTER: The patient is conscious awake alert oriented x3 with no focal deficits. PSYCHIATRIC: The patient judgment insight are intact his affect is normal. Labs- All tests 24 hr 02/13/19 02/13/19 04:01 07:39 Sodium 143.7 Potassium 3.9 Chloride 95 L Carbon Dioxide 39 H Anion Gap 10 BUN 33 H Creatinine 1.61 H Est GFR ( Amer) 53 L Est GFR (Non-Af Amer) 44 L Glucose 120 H POC Glucose 146 H Calcium 10.6 H Chest X-Ray 02/10/19 03:33 IMPRESSION: Moderate to severe cardiac enlargement and pulmonary vascular congestion. Differential diagnosis includes CHF. IMPRESSION / RECOMMENDATION: 1. Acute on chronic congestive heart failure. This is due to acute on chronic systolic heart failure. At present seems to be compensated. Continue current diuretics and current treatment. Since his heart failure is compensated at present will start the patient on Toprol-XL 25 mg p.o. every 12 hours and increase as tolerated. We will also start the patient on hydralazine 10 mg p.o. every 8 hours we will also add a small dose of losartan at 25 mg p.o. every 12 hours. Will watch his renal function. Continue diuretics. 2. Cardiomyopathy with severely reduced LV ejection fraction. We will start the gold standard treatment for cardiomyopathy. Would recommend that the patient have a repeat echocardiogram in 3 months, and if still LV ejection fraction is 35% or below then would refer the patient for AICD placement. The patient has no history of sudden . And there is no ventricular arrhythmia seen on the monitor. Also the patient is morbidly obese and I am not sure if there is a life jacket that would fit the patient but will discuss with the [employer] technical sales representatives 3. Hypertension: Well controlled we will stop the patient's amlodipine, since this may increase the patient's leg swelling. 4. Chronic kidney disease stage III. Nephrology on the case. 5. Obstructive sleep apnea: Note that the patient CPAP been machine is not functional. Also the form that the patient got her CPAP have moved out of town down. Hence will try to get the patient a replacement CPAP. His sleep study from 3 years ago has been obtained. This is on the chart. 6. History of asthma/COPD: At present compensated and at baseline. 7. Morbid obesity. Medications reviewed management plan discussed with Dr. Garrett. Medical decision making is of moderate complexity. 40 minutes spent on this patient more than 50% time spent in direct patient care.
[2019-02-13] MEDS: LATANOPROST 0.005% OPH SOLN 2.5 ML OU SCH (22:25)
[2019-02-14 04:43] LABS: BLOOD UREA NITROGEN 37 mg/dL (7-20); CALCIUM 10.2 mg/dL (8.4-10.2); CHLORIDE 96 mmol/L (98-107); GLUCOSE 113 mg/dL (75-110); POTASSIUM 3.5 mmol/L (3.6-5.0); SODIUM 143.9 mmol/L (137-145)
[2019-02-14 04:50] LABS: ANION GAP 9 (5-19); CARBON DIOXIDE 39 mmol/L (22-30)
[2019-02-14] MEDS: HYDRALAZINE HCL 10 MG TABLET PO SCH (06:01)
[2019-02-14] MEDS: GABAPENTIN 300 MG CAPSULE PO SCH ×3 (06:07→22:00)
--- NOTE | 2019-02-14 07:24 | PDOC PROGRESS REPORT ---
Subjective Progress Note for:: 02/14/19 Subjective:: less dyspnea Reason For Visit: HEART FAILURE Physical Exam Vital Signs: Temp Pulse Resp BP Pulse Ox 97.4 F 78 20 111/70 93 02/14/19 03:36 02/14/19 03:36 02/14/19 03:53 02/14/19 03:36 02/14/19 03:53 Intake & Output 02/12/19 02/13/19 02/14/19 07:59 07:59 07:59 Intake Total 1146 1154 1452 Output Total 1800 1925 1590 Balance -654 -771 -138 Weight 379 lb 3.121 oz 379 lb 3.121 oz 372 lb 2.244 oz General appearance: PRESENT: no acute distress Respiratory exam: PRESENT: clear to auscultation caden Cardiovascular exam: ABSENT: diastolic murmur, irregular rhythm, systolic murmur GI/Abdominal exam: ABSENT: mass, organolmegaly, tenderness Extremities exam: PRESENT: pedal edema - 3+ Neurological exam: PRESENT: oriented to situation Psychiatric exam: PRESENT: appropriate affect Results Laboratory Results: 02/10/19 02:40 02/14/19 04:10 02/14/19 04:10 Sodium 143.9 Potassium 3.5 L Chloride 96 L Carbon Dioxide 39 H Anion Gap 9 BUN 37 H Creatinine 1.55 H Est GFR ( Amer) 55 L Est GFR (Non-Af Amer) 46 L Glucose 113 H Calcium 10.2 Impressions: Chest X-Ray 02/10/19 03:33 IMPRESSION: Moderate to severe cardiac enlargement and pulmonary vascular congestion. Differential diagnosis includes CHF. Assessment & Plan - Diagnosis (1) Hypercapnic respiratory failure Qualifiers: Chronicity: acute Qualified Code(s): J96.02 - Acute respiratory failure with hypercapnia Is this a current diagnosis for this admission?: Yes Plan: Only DME on [facility] is [facility]. Jerica directed him to this for bipap. Will send bipap titration study to [facility] Friday tomorrow. (2) Chronic combined systolic and diastolic heart failure Is this a current diagnosis for this admission?: Yes Plan: Hydralazine held for hypotension. Will stop it. Nephrology suggested switching furosemide to bumetinide. (3) Idiopathic chronic gout of multiple sites without tophus Is this a current diagnosis for this admission?: Yes (4) Obstructive sleep apnea Is this a current diagnosis for this admission?: Yes (5) Type 2 diabetes mellitus with diabetic chronic kidney disease Qualifiers: Diabetes mellitus [facility] insulin use: without [facility] use Chronic kidney disease stage: stage 4 (severe) Qualified Code(s): E11.22 - Type 2 diabetes mellitus with diabetic chronic kidney disease; N18.4 - Chronic kidney disease, stage 4 (severe) Is this a current diagnosis for this admission?: Yes Plan: creatinine and Caclium coming down. - Inpatient Certification Medical Necessity: Failure to Improve With Outpatient Therapy, Significant Co morbidiites Make Outpatient Treatment Too Risky, Need Close Monitoring Due to Risk of Patient Decompensation, Need For Continuous Telemetry Monitoring, Need for Nebulizer Therapy and Monitoring of Response, Risk of Complication if Not Cared For in Hospital, Risk of Diagnosis Which Will Require Inpatient Eval/Care/Monitoring
[2019-02-14] MEDS: ASPIRIN 81 MG TABLET, CHEWABLE PO SCH (07:46)
[2019-02-14] MEDS: GLIMEPIRIDE 1 MG TABLET PO SCH (07:46)
[2019-02-14] MEDS: IPRATROPIUM/ALBUTEROL 0.5-2.5 MG/3 ML AMPUL NEB SCH ×3 (08:05→23:20)
[2019-02-14] MEDS: INSULIN REG, HUMAN 100 UNIT/ML 3 ML VIAL (PYX) SUBCUT SCH ×4 (09:46→21:55)
[2019-02-14] MEDS: LACTULOSE SYRUP 20 GM/30 ML UDCUP PO SCH (09:55)
[2019-02-14] MEDS: BUMETANIDE 1 MG TABLET PO SCH ×2 (09:55→17:01)
[2019-02-14] MEDS: METOPROLOL SUCCINATE 25 MG TAB.SR.24H PO SCH ×2 (09:56→22:02)
[2019-02-14] MEDS: ENOXAPARIN SODIUM INJ 30 MG/0.3 ML DISP.SYRIN SUBCUT SCH (09:56)
[2019-02-14] MEDS: FAMOTIDINE 20 MG TABLET PO SCH ×2 (09:56→22:00)
[2019-02-14] MEDS: CLOPIDOGREL BISULFATE 75 MG TABLET PO SCH (09:56)
[2019-02-14] MEDS: LOSARTAN POTASSIUM 25 MG TABLET PO SCH ×2 (09:56→22:00)
[2019-02-14] MEDS: ALLOPURINOL 300 MG TABLET PO SCH (17:01)
[2019-02-14] MEDS: ATORVASTATIN CALCIUM 80 MG TABLET PO SCH (22:00)
[2019-02-14] MEDS: LATANOPROST 0.005% OPH SOLN 2.5 ML OU SCH (22:01)
[2019-02-15] MEDS: GABAPENTIN 300 MG CAPSULE PO SCH ×3 (05:40→21:53)
[2019-02-15 05:43] LABS: ANION GAP 7 (5-19); BLOOD UREA NITROGEN 40 mg/dL (7-20); CALCIUM 10.8 mg/dL (8.4-10.2); CARBON DIOXIDE 39 mmol/L (22-30); CHLORIDE 94 mmol/L (98-107); GLUCOSE 83 mg/dL (75-110); POTASSIUM 3.8 mmol/L (3.6-5.0); SODIUM 140.3 mmol/L (137-145)
[2019-02-15] MEDS: IPRATROPIUM/ALBUTEROL 0.5-2.5 MG/3 ML AMPUL NEB SCH ×3 (07:32→23:51)
--- NOTE | 2019-02-15 08:10 | PDOC PROGRESS REPORT ---
Subjective Progress Note for:: 02/15/19 Subjective:: dyspnea same Reason For Visit: HEART FAILURE Physical Exam Vital Signs: Temp Pulse Resp BP Pulse Ox 97.4 F 81 20 107/69 96 02/15/19 03:25 02/15/19 03:25 02/15/19 04:56 02/15/19 03:25 02/15/19 04:56 Intake & Output 02/14/19 02/15/19 02/16/19 07:59 07:59 07:59 Intake Total 1452 1472 Output Total 1590 1999 Balance -138 -528 Weight 372 lb 2.244 oz 384 lb 0.724 oz General appearance: PRESENT: no acute distress Respiratory exam: PRESENT: clear to auscultation caden Cardiovascular exam: ABSENT: diastolic murmur, irregular rhythm, systolic murmur GI/Abdominal exam: ABSENT: mass, organolmegaly, tenderness Extremities exam: PRESENT: pedal edema - 3+ Neurological exam: PRESENT: oriented to situation Psychiatric exam: PRESENT: appropriate affect Results Laboratory Results: 02/10/19 02:40 02/15/19 04:28 02/15/19 04:28 Sodium 140.3 Potassium 3.8 Chloride 94 L Carbon Dioxide 39 H Anion Gap 7 BUN 40 H Creatinine 1.67 H Est GFR ( Amer) 51 L Est GFR (Non-Af Amer) 42 L Glucose 83 Calcium 10.8 H Impressions: Chest X-Ray 02/10/19 03:33 IMPRESSION: Moderate to severe cardiac enlargement and pulmonary vascular congestion. Differential diagnosis includes CHF. Assessment & Plan - Diagnosis (1) Hypercapnic respiratory failure Qualifiers: Chronicity: acute Qualified Code(s): J96.02 - Acute respiratory failure with hypercapnia Is this a current diagnosis for this admission?: Yes Plan: bipap docs to [facility] today (2) Chronic combined systolic and diastolic heart failure Is this a current diagnosis for this admission?: Yes Plan: bun40 cr1.7 edema still 3+ (3) Idiopathic chronic gout of multiple sites without tophus Is this a current diagnosis for this admission?: Yes (4) Obstructive sleep apnea Is this a current diagnosis for this admission?: Yes (5) Type 2 diabetes mellitus with diabetic chronic kidney disease Qualifiers: Diabetes mellitus snf insulin use: without snf use Chronic kidney disease stage: stage 4 (severe) Qualified Code(s): E11.22 - Type 2 diabetes mellitus with diabetic chronic kidney disease; N18.4 - Chronic kidney disease, stage 4 (severe) Is this a current diagnosis for this admission?: Yes
[2019-02-15] MEDS: INSULIN REG, HUMAN 100 UNIT/ML 3 ML VIAL (PYX) SUBCUT SCH ×4 (08:40→21:54)
[2019-02-15] MEDS: ASPIRIN 81 MG TABLET, CHEWABLE PO SCH (08:50)
[2019-02-15] MEDS: GLIMEPIRIDE 1 MG TABLET PO SCH (08:50)
--- NOTE | 2019-02-15 11:06 | PDOC PROGRESS REPORT ---
Subjective Progress Note for:: 02/15/19 Reason For Visit: Patient seen this morning. He admits to the fact that he is short of breath with minimal exertion. He is also having jerking movements and intermittent asterixis while I am talking to him. He admits to the fact he has been noncompliant with CPAP for many months and he blames it on the company that supplied the machine. He is unable to be compliant with diet , medications also in the past. Is not on a proper fluid restrictions even though he has been told the reason why he has to be on. Labs and medications were reviewed. Patient was discussed with his treating nurse Angelina. Physical Exam Vital Signs: Temp Pulse Resp BP Pulse Ox 97.7 F 103 H 18 125/91 H 90 L 02/15/19 07:30 02/15/19 07:32 02/15/19 07:32 02/15/19 07:30 02/15/19 07:32 Intake & Output 02/14/19 02/15/19 02/16/19 06:59 06:59 06:59 Intake Total 1452 1472 Output Total 1590 2000 Balance -138 -528 Weight 168.8 kg 174.2 kg General appearance: PRESENT: no acute distress, disheveled, morbidly obese Respiratory exam: PRESENT: clear to auscultation caden, decreased breath sounds. ABSENT: crackles Cardiovascular exam: PRESENT: RRR, +S1, +S2 GI/Abdominal exam: PRESENT: normal bowel sounds, soft. ABSENT: organomegaly, tenderness Extremities exam: PRESENT: +2 edema Neurological exam: PRESENT: alert, awake, oriented to person, oriented to place. ABSENT: oriented to time Skin exam: PRESENT: mottled - Venous stasis changes of both lower extremities.. ABSENT: cyanosis, erythema, rash Results Laboratory Results: 02/10/19 02:40 02/15/19 04:28 02/15/19 04:28 Sodium 140.3 Potassium 3.8 Chloride 94 L Carbon Dioxide 39 H Anion Gap 7 BUN 40 H Creatinine 1.67 H Est GFR ( Amer) 51 L Est GFR (Non-Af Amer) 42 L Glucose 83 Calcium 10.8 H 02/10/19 02/11/19 02/12/19 02:40 19:21 02:17 Troponin I 0.083 0.084 0.086 NT-Pro-B Natriuret Pep 3050 H 02/12/19 07:06 Troponin I 0.079 NT-Pro-B Natriuret Pep Impressions: Chest X-Ray 02/10/19 03:33 IMPRESSION: Moderate to severe cardiac enlargement and pulmonary vascular congestion. Differential diagnosis includes CHF. Assessment & Plan - Diagnosis (1) CHF exacerbation Qualifiers: Heart failure type: unspecified Qualified Code(s): I50.9 - Heart failure, unspecified Plan: Patient is got all features suggestive of cor pulmonale. Patient is not making enough of urine to produce a satisfactory negative balance. Discussed with patient about proper dietary and fluid compliance. Advised him on fluid restriction. However because he is CO2 retainer I do not think he is able to register and retain whatever instructions that he has been given. Discussed with the treating nurse. She will try to make him understand about fluid restriction. Convert p.o. to IV Bumex and add metolazone. Monitor carefully. No acute indications for renal replacements. (2) CKD (chronic kidney disease) stage 3, GFR 30-59 ml/min Plan: Status quo. Nonoliguric. Patient is got obviously prerenal cardiac issues that needs to be resolved. (3) Hypercapnic respiratory failure Qualifiers: Chronicity: acute Qualified Code(s): J96.02 - Acute respiratory failure with hypercapnia Is this a current diagnosis for this admission?: Yes Plan: Part of cor pulmonale/sleep apnea untreated. (4) Hypertension Plan: Controlled. Monitor. (5) Obstructive sleep apnea Is this a current diagnosis for this admission?: Yes Plan: Noncompliant with CPAP 4 months ago prior to admission. Patient is got features suggestive of decompensated cor pulmonale. Currently getting BiPAP in the hospital. (6) Type 2 diabetes mellitus with diabetic chronic kidney disease Qualifiers: Diabetes mellitus skilled nursing insulin use: without supervisor contingents use Chronic kidney disease stage: stage 4 (severe) Qualified Code(s): E11.22 - Type 2 diabetes mellitus with diabetic chronic kidney disease; N18.4 - Chronic kidney disease, stage 4 (severe) Is this a current diagnosis for this admission?: Yes Plan: Controlled. Monitor.
[2019-02-15] MEDS: LACTULOSE SYRUP 20 GM/30 ML UDCUP PO SCH (11:15)
[2019-02-15] MEDS: FAMOTIDINE 20 MG TABLET PO SCH ×2 (11:17→21:53)
[2019-02-15] MEDS: METOPROLOL SUCCINATE 25 MG TAB.SR.24H PO SCH ×2 (11:17→21:53)
[2019-02-15] MEDS: ENOXAPARIN SODIUM INJ 30 MG/0.3 ML DISP.SYRIN SUBCUT SCH (11:17)
[2019-02-15] MEDS: CLOPIDOGREL BISULFATE 75 MG TABLET PO SCH (11:17)
[2019-02-15] MEDS: ALLOPURINOL 300 MG TABLET PO SCH (17:30)
[2019-02-15] MEDS: ATORVASTATIN CALCIUM 80 MG TABLET PO SCH (21:53)
[2019-02-15] MEDS: LATANOPROST 0.005% OPH SOLN 2.5 ML OU SCH (21:54)
[2019-02-15] MEDS: BUMETANIDE INJ/PF 1 MG/4 ML SDV IV SCH (21:54)
[2019-02-15] MEDS ORDERED: LOSARTAN POTASSIUM 25 MG TABLET PO SCH (22:00)
--- NOTE | 2019-02-15 22:40 | XCELERA REPORT ---
[address] [address] Transthoracic Echocardiogram Report Name: KASSI MIKE PANDA JR Age: 63 yrs Gender: Male : 1955 Patient Status: Inpatient Patient Location: [address] [place], [place] [id number] Study Date: 02/10/2019 06:14 PM Height: 74 in Weight: 366 lb BSA: 2.8 m2 Procedure: A two-dimensional transthoracic echocardiogram with color flow and Doppler was performed. The study was technically difficult with many images being suboptimal in quality. The study was technically limited with all images being suboptimal in quality. Reason For Study: chf History: CHF. Ordering Physician: STEVIE REGAN Performed By: Ly Garza Interpretation Summary The left ventricle is moderately dilated. There is normal left ventricular wall thickness. LV EF is 30% Left ventricular systolic function is severely reduced. There is severe global hypokinesis of the left ventricle. There is no thrombus. The right ventricle is mild to moderately dilated. The right ventricle is not well visualized secondary to technical limitations The left atrium is moderately dilated. The right atrium is normal. There is no evidence of mitral valve prolapse. There is no vegetation seen on the mitral valve. There is no mitral valve stenosis. There is a mild amount of mitral regurgitation There is no aortic valvular vegetation. There is no aortic valve stenosis No aortic regurgitation is present. There is no tricuspid stenosis. There is a trace to mild amount of tricuspid regurgitation Mild pulmonary hypertension.RVSP is at least 43 mm of HG.Suspect undersampling of TR jet and underestimation of RVSP. There is no pulmonic valvular stenosis. There is a trace amount of pulmonic regurgitation The aortic root is normal size. The inferior vena cava appeared dilated and did not change with respiration (RAP > 20 mmHg) There is no pericardial effusion. MMode/2D Measurements & Calculations RVDd: 3.9 cm LVIDd: 7.0 cm FS: 11.0 % Ao root diam: 3.6 cm IVSd: 1.1 cm LVIDs: 6.2 cm EDV(Teich): 256.8 ml Ao root area: 10.3 cm2 LVPWd: 0.95 cm ESV(Teich): 197.3 ml LA dimension: 6.4 cm EF(Teich): 23.2 % Doppler Measurements & Calculations MV E max maurilio: MV P1/2t max maurilio: Ao V2 max: LV V1 max P.2 cm/sec 167.0 cm/sec 126.2 cm/sec 3.2 mmHg MV P1/2t: 44.7 msec Ao max PG: LV V1 max: MVA(P1/2t): 4.9 cm2 6.4 mmHg 89.9 cm/sec MV dec slope: 1094 cm/sec2 MV dec time: 0.15 sec PA V2 max: PI end-d maurilio: TR max maurilio: MV P1/2t-pr_phl: 88.2 cm/sec 141.8 cm/sec 237.5 cm/sec 44.7 msec PA max P.1 mmHg TR max P.6 mmHg Left Ventricle The left ventricle is moderately dilated. There is normal left ventricular wall thickness. LV EF is 30%. Left ventricular systolic function is severely reduced. LV diastolic function not assessed. There is severe global hypokinesis of the left ventricle. There is no thrombus. cannot assess for ASD,VSD or PFo. Right Ventricle The right ventricle is mild to moderately dilated. The right ventricle is not well visualized secondary to technical limitations. Atria The right atrium is normal. The left atrium is moderately dilated. Mitral Valve There is no evidence of mitral valve prolapse. There is no vegetation seen on the mitral valve. There is no mitral valve stenosis. There is a mild amount of mitral regurgitation. Aortic Valve There is no aortic valvular vegetation. There is no aortic valve stenosis. No aortic regurgitation is present. Tricuspid Valve There is no tricuspid stenosis. There is a trace to mild amount of tricuspid regurgitation. Mild pulmonary hypertension.RVSP is at least 43 mm of HG.Suspect undersampling of TR jet and underestimation of RVSP. Pulmonic Valve There is no pulmonic valvular stenosis. There is a trace amount of pulmonic regurgitation. Great Vessels The aortic root is normal size. The inferior vena cava appeared dilated and did not change with respiration (RAP > 20 mmHg). Effusions There is no pericardial effusion. : STEVIE REGAN > [facility]
[2019-02-16] MEDS: LOSARTAN POTASSIUM 25 MG TABLET PO SCH (00:07)
[2019-02-16] MEDS: BUMETANIDE 1 MG TABLET PO SCH (00:07)
[2019-02-16] MEDS: GABAPENTIN 300 MG CAPSULE PO SCH ×3 (05:26→21:49)
[2019-02-16 05:49] LABS: ANION GAP 9 (5-19); BLOOD UREA NITROGEN 42 mg/dL (7-20); CALCIUM 9.6 mg/dL (8.4-10.2); CARBON DIOXIDE 39 mmol/L (22-30); CHLORIDE 93 mmol/L (98-107); GLUCOSE 85 mg/dL (75-110); POTASSIUM 4.1 mmol/L (3.6-5.0); SODIUM 141.1 mmol/L (137-145)
[2019-02-16] MEDS: GLIMEPIRIDE 1 MG TABLET PO SCH (07:42)
[2019-02-16] MEDS: ASPIRIN 81 MG TABLET, CHEWABLE PO SCH (07:42)
[2019-02-16] MEDS: IPRATROPIUM/ALBUTEROL 0.5-2.5 MG/3 ML AMPUL NEB SCH ×2 (07:51→16:20)
--- NOTE | 2019-02-16 08:14 | PDOC PROGRESS REPORT ---
Subjective Progress Note for:: 02/16/19 Subjective:: Claims he is getting conflicting info on bipap. Denies noncompliance with diet meds. Wants cpr. Reason For Visit: HEART FAILURE Physical Exam Vital Signs: Temp Pulse Resp BP Pulse Ox 97.4 F 88 20 100/57 L 94 02/16/19 04:34 02/16/19 07:51 02/16/19 07:51 02/16/19 04:34 02/16/19 07:51 Intake & Output 02/15/19 02/16/19 02/17/19 07:59 07:59 07:59 Intake Total 1472 720 Output Total 1999 875 Balance -528 -155 Weight 384 lb 0.724 oz 377 lb 13.957 oz General appearance: PRESENT: no acute distress Respiratory exam: PRESENT: clear to auscultation caden Cardiovascular exam: ABSENT: diastolic murmur, irregular rhythm, systolic murmur GI/Abdominal exam: ABSENT: mass, organolmegaly, tenderness Extremities exam: PRESENT: pedal edema - 3+ Neurological exam: PRESENT: oriented to person, oriented to place, oriented to time. ABSENT: oriented to situation Psychiatric exam: PRESENT: anxious Results Laboratory Results: 02/10/19 02:40 02/16/19 04:28 02/16/19 04:28 Sodium 141.1 Potassium 4.1 Chloride 93 L Carbon Dioxide 39 H Anion Gap 9 BUN 42 H Creatinine 1.61 H Est GFR ( Amer) 53 L Est GFR (Non-Af Amer) 44 L Glucose 85 Calcium 9.6 Magnesium 2.2 Impressions: Chest X-Ray 02/10/19 03:33 IMPRESSION: Moderate to severe cardiac enlargement and pulmonary vascular congestion. Differential diagnosis includes CHF. Assessment & Plan - Diagnosis (1) Hypercapnic respiratory failure Qualifiers: Chronicity: acute on chronic Qualified Code(s): J96.22 - Acute and chronic respiratory failure with hypercapnia Is this a current diagnosis for this admission?: Yes Plan: Although is is on [employer]are now, his bipap is 2y old and must be serviced by [facility]. Can have new one q3y. Wants cpr even if he may be on vent till . CO2=39 (2) Chronic combined systolic and diastolic heart failure Is this a current diagnosis for this admission?: Yes Plan: Dr Mckeon added zaroxolyn. (3) Idiopathic chronic gout of multiple sites without tophus Is this a current diagnosis for this admission?: Yes (4) Obstructive sleep apnea Is this a current diagnosis for this admission?: Yes (5) Type 2 diabetes mellitus with diabetic chronic kidney disease Qualifiers: Diabetes mellitus assisted insulin use: without intermediate designer use Chronic kidney disease stage: stage 4 (severe) Qualified Code(s): E11.22 - Type 2 diabetes mellitus with diabetic chronic kidney disease; N18.4 - Chronic kidney disease, stage 4 (severe) Is this a current diagnosis for this admission?: Yes (6) Morbid (severe) obesity due to excess calories Is this a current diagnosis for this admission?: Yes (7) Adult BMI 50.0-59.9 kg/sq m Is this a current diagnosis for this admission?: Yes
[2019-02-16] MEDS: METOPROLOL SUCCINATE 25 MG TAB.SR.24H PO SCH ×2 (09:46→21:49)
[2019-02-16] MEDS: CLOPIDOGREL BISULFATE 75 MG TABLET PO SCH (09:46)
[2019-02-16] MEDS: METOLAZONE 5 MG TABLET PO SCH (09:46)
[2019-02-16] MEDS: ENOXAPARIN SODIUM INJ 30 MG/0.3 ML DISP.SYRIN SUBCUT SCH (09:46)
[2019-02-16] MEDS: FAMOTIDINE 20 MG TABLET PO SCH ×2 (09:46→21:49)
[2019-02-16] MEDS: LACTULOSE SYRUP 20 GM/30 ML UDCUP PO SCH (09:47)
[2019-02-16] MEDS: BUMETANIDE INJ/PF 1 MG/4 ML SDV IV SCH ×2 (09:49→21:48)
[2019-02-16] MEDS: INSULIN REG, HUMAN 100 UNIT/ML 3 ML VIAL (PYX) SUBCUT SCH ×4 (09:56→21:49)
[2019-02-16] MEDS: ALLOPURINOL 300 MG TABLET PO SCH (18:12)
[2019-02-16] MEDS: ATORVASTATIN CALCIUM 80 MG TABLET PO SCH (21:48)
[2019-02-16] MEDS: LATANOPROST 0.005% OPH SOLN 2.5 ML OU SCH (21:49)
[2019-02-17] MEDS: IPRATROPIUM/ALBUTEROL 0.5-2.5 MG/3 ML AMPUL NEB SCH ×4 (00:11→23:48)
[2019-02-17 04:37] LABS: BLOOD UREA NITROGEN 47 mg/dL (7-20); CALCIUM 10.8 mg/dL (8.4-10.2); CHLORIDE 92 mmol/L (98-107); GLUCOSE 104 mg/dL (75-110); POTASSIUM 3.6 mmol/L (3.6-5.0); SODIUM 140.4 mmol/L (137-145)
[2019-02-17 04:47] LABS: ANION GAP 6 (5-19); CARBON DIOXIDE 42 mmol/L (22-30)
[2019-02-17] MEDS: GABAPENTIN 300 MG CAPSULE PO SCH ×3 (05:13→21:56)
--- NOTE | 2019-02-17 07:17 | PDOC PROGRESS REPORT ---
Subjective Progress Note for:: 02/17/19 Subjective:: worried about decline in health. Loss of sleep appetite crying. Not ready for antidepressant. Reason For Visit: HEART FAILURE Physical Exam Vital Signs: Temp Pulse Resp BP Pulse Ox 97.2 F 76 16 131/79 H 91 L 02/17/19 03:41 02/17/19 03:41 02/17/19 03:41 02/17/19 03:41 02/17/19 03:41 Intake & Output 02/15/19 02/16/19 02/17/19 07:59 07:59 07:59 Intake Total 8037 361 7807 Output Total 1999 878 0410 Balance -420 -725 -2113 Weight 384 lb 0.724 oz 377 lb 13.957 oz 375 lb 10.683 oz General appearance: PRESENT: mild distress Respiratory exam: PRESENT: clear to auscultation caden Cardiovascular exam: ABSENT: diastolic murmur, irregular rhythm, systolic murmur GI/Abdominal exam: ABSENT: tenderness Extremities exam: PRESENT: pedal edema - 3+ Neurological exam: PRESENT: oriented to situation Psychiatric exam: PRESENT: depressed Results Laboratory Results: 02/10/19 02:40 02/17/19 03:39 02/17/19 03:39 Sodium 140.4 Potassium 3.6 Chloride 92 L Carbon Dioxide 42 H* Anion Gap 6 BUN 47 H Creatinine 1.74 H Est GFR ( Amer) 48 L Est GFR (Non-Af Amer) 40 L Glucose 104 Calcium 10.8 H Impressions: Chest X-Ray 02/10/19 03:33 IMPRESSION: Moderate to severe cardiac enlargement and pulmonary vascular congestion. Differential diagnosis includes CHF. Assessment & Plan - Diagnosis (1) Hypercapnic respiratory failure Qualifiers: Chronicity: acute on chronic Qualified Code(s): J96.22 - Acute and chronic respiratory failure with hypercapnia Is this a current diagnosis for this admission?: Yes Plan: [facility] and [facility]iance planning bipap check. Added diamox. Not restricting fluids. (2) Chronic combined systolic and diastolic heart failure Is this a current diagnosis for this admission?: Yes (3) Idiopathic chronic gout of multiple sites without tophus Is this a current diagnosis for this admission?: Yes (4) Obstructive sleep apnea Is this a current diagnosis for this admission?: Yes (5) Type 2 diabetes mellitus with diabetic chronic kidney disease Qualifiers: Diabetes mellitus long-term insulin use: without termite treater helper use Chronic kidney disease stage: stage 4 (severe) Qualified Code(s): E11.22 - Type 2 diabetes mellitus with diabetic chronic kidney disease; N18.4 - Chronic kidney disease, stage 4 (severe) Is this a current diagnosis for this admission?: Yes (6) Morbid (severe) obesity due to excess calories Is this a current diagnosis for this admission?: Yes (7) Adult BMI 50.0-59.9 kg/sq m Is this a current diagnosis for this admission?: Yes - Inpatient Certification Medical Necessity: Failure to Improve With Outpatient Therapy, Significant Comorbidiites Make Outpatient Treatment Too Risky, Need Close Monitoring Due to Risk of Patient Decompensation, Need For Continuous Telemetry Monitoring, Need for Nebulizer Therapy and Monitoring of Response, Risk of Complication if Not Cared For in Hospital, Risk of Diagnosis Which Will Require Inpatient Eval/Care/Monitoring
[2019-02-17] MEDS: INSULIN REG, HUMAN 100 UNIT/ML 3 ML VIAL (PYX) SUBCUT SCH ×4 (10:20→21:55)
[2019-02-17] MEDS: METOPROLOL SUCCINATE 25 MG TAB.SR.24H PO SCH ×2 (10:23→21:56)
[2019-02-17] MEDS: CLOPIDOGREL BISULFATE 75 MG TABLET PO SCH (10:23)
[2019-02-17] MEDS: FAMOTIDINE 20 MG TABLET PO SCH ×2 (10:23→21:56)
[2019-02-17] MEDS: LACTULOSE SYRUP 20 GM/30 ML UDCUP PO SCH (10:23)
[2019-02-17] MEDS: METOLAZONE 5 MG TABLET PO SCH (10:23)
[2019-02-17] MEDS: GLIMEPIRIDE 1 MG TABLET PO SCH (10:24)
[2019-02-17] MEDS: ENOXAPARIN SODIUM INJ 30 MG/0.3 ML DISP.SYRIN SUBCUT SCH (10:24)
[2019-02-17] MEDS: ASPIRIN 81 MG TABLET, CHEWABLE PO SCH (10:24)
[2019-02-17] MEDS: ACETAZOLAMIDE 500 MG CAPSULE.SA PO SCH ×2 (10:33→17:45)
[2019-02-17] MEDS: BUMETANIDE INJ/PF 1 MG/4 ML SDV IV SCH ×2 (10:34→21:55)
--- NOTE | 2019-02-17 17:37 | PDOC PROGRESS REPORT ---
Subjective Progress Note for:: 02/17/19 Reason For Visit: Patient seen today. He is feeling a whole lot better since I saw him couple of days ago. His breathing is a whole lot better. He is more awake and alert. He has had a good response to the changes in diuretics that I had initiated. Labs and medications were reviewed with the patient. Physical Exam Vital Signs: Temp Pulse Resp BP Pulse Ox 97.4 F 79 18 107/78 98 02/17/19 11:44 02/17/19 14:00 02/17/19 11:44 02/17/19 11:44 02/17/19 12:48 Intake & Output 02/16/19 02/17/19 02/18/19 06:59 06:59 06:59 Intake Total 720 2115 474 Output Total 875 5110 1 Balance -155 -2995 473 Weight 171.4 kg 170.4 kg General appearance: PRESENT: no acute distress Respiratory exam: PRESENT: clear to auscultation caden, decreased breath sounds. ABSENT: crackles Cardiovascular exam: PRESENT: RRR, +S1, +S2 GI/Abdominal exam: PRESENT: normal bowel sounds, soft. ABSENT: organomegaly, tenderness Extremities exam: PRESENT: +2 edema Neurological exam: PRESENT: alert, awake, oriented to person, oriented to place Psychiatric exam: PRESENT: appropriate affect Skin exam: PRESENT: mottled - From venous stasis changes in both lower extremities.. ABSENT: cyanosis, erythema, rash Results Laboratory Results: 02/10/19 02:40 02/17/19 03:39 02/17/19 03:39 Sodium 140.4 Potassium 3.6 Chloride 92 L Carbon Dioxide 42 H* Anion Gap 6 BUN 47 H Creatinine 1.74 H Est GFR ( Amer) 48 L Est GFR (Non-Af Amer) 40 L Glucose 104 Calcium 10.8 H 02/10/19 02/11/19 02/12/19 02:40 19:21 02:17 Troponin I 0.083 0.084 0.086 NT-Pro-B Natriuret Pep 3050 H 02/12/19 07:06 Troponin I 0.079 NT-Pro-B Natriuret Pep Impressions: Chest X-Ray 02/10/19 03:33 IMPRESSION: Moderate to severe cardiac enlargement and pulmonary vascular congestion. Differential diagnosis includes CHF. Assessment & Plan - Diagnosis (1) CHF exacerbation Qualifiers: Heart failure type: unspecified Qualified Code(s): I50.9 - Heart failure, unspecified Plan: Patient is got all features suggestive of cor pulmonale. Having a good diuretic response to current medications. Continue on the same. No acute indications for renal replacements. (2) CKD (chronic kidney disease) stage 3, GFR 30-59 ml/min Plan: Status quo. Nonoliguric. Patient is got obviously prerenal cardiac issues that needs to be resolved. (3) Hypercapnic respiratory failure Qualifiers: Chronicity: acute on chronic Qualified Code(s): J96.22 - Acute and chronic respiratory failure with hypercapnia Is this a current diagnosis for this admission?: Yes Plan: Part of cor pulmonale/sleep apnea untreated. (4) Hypertension Plan: Controlled. Monitor. (5) Obstructive sleep apnea Is this a current diagnosis for this admission?: Yes Plan: Noncompliant with CPAP 4 months ago prior to admission. Patient is got features suggestive of decompensated cor pulmonale. Currently getting BiPAP in the hospital. (6) Type 2 diabetes mellitus with diabetic chronic kidney disease Qualifiers: Diabetes mellitus flying squad salesperson insulin use: without flying squad salesperson use Chronic kidney disease stage: stage 4 (severe) Qualified Code(s): E11.22 - Type 2 diabetes mellitus with diabetic chronic kidney disease; N18.4 - Chronic kidney disease, stage 4 (severe) Is this a current diagnosis for this admission?: Yes Plan: Controlled. Monitor.
[2019-02-17] MEDS: ALLOPURINOL 300 MG TABLET PO SCH (17:45)
[2019-02-17] MEDS: ATORVASTATIN CALCIUM 80 MG TABLET PO SCH (21:56)
[2019-02-17] MEDS: LATANOPROST 0.005% OPH SOLN 2.5 ML OU SCH (21:57)
[2019-02-18] MEDS: GABAPENTIN 300 MG CAPSULE PO SCH ×3 (05:52→21:04)
[2019-02-18] MEDS: IPRATROPIUM/ALBUTEROL 0.5-2.5 MG/3 ML AMPUL NEB SCH ×2 (07:25→15:48)
[2019-02-18] MEDS: GLIMEPIRIDE 1 MG TABLET PO SCH (07:49)
[2019-02-18] MEDS: ASPIRIN 81 MG TABLET, CHEWABLE PO SCH (07:50)
[2019-02-18] MEDS: INSULIN REG, HUMAN 100 UNIT/ML 3 ML VIAL (PYX) SUBCUT SCH ×4 (07:50→21:04)
--- NOTE | 2019-02-18 08:09 | PDOC PROGRESS REPORT ---
Subjective Progress Note for:: 02/18/19 Subjective:: Bipap till 4am sleepwalking. Antonio said she had no transportation to take bipap to [place]. Now [facility] is expected in the house. Reason For Visit: HEART FAILURE Physical Exam Vital Signs: Temp Pulse Resp BP Pulse Ox 97.4 F 87 18 132/86 H 100 02/18/19 07:33 02/18/19 07:33 02/18/19 07:33 02/18/19 07:33 02/18/19 07:33 Intake & Output 02/17/19 02/18/19 02/19/19 07:59 07:59 07:59 Intake Total 2115 1074 Output Total 5110 3146 Balance -2995 -2072 Weight 375 lb 10.683 oz 373 lb 10.936 oz General appearance: PRESENT: no acute distress Respiratory exam: PRESENT: clear to auscultation caden Cardiovascular exam: ABSENT: diastolic murmur, irregular rhythm, systolic murmur GI/Abdominal exam: ABSENT: tenderness Extremities exam: PRESENT: pedal edema Neurological exam: PRESENT: oriented to situation Psychiatric exam: PRESENT: appropriate affect Results Laboratory Results: 02/10/19 02:40 02/17/19 03:39 Impressions: Chest X-Ray 02/10/19 03:33 IMPRESSION: Moderate to severe cardiac enlargement and pulmonary vascular congestion. Differential diagnosis includes CHF. Assessment & Plan - Diagnosis (1) Hypercapnic respiratory failure Qualifiers: Chronicity: acute on chronic Qualified Code(s): J96.22 - Acute and chronic respiratory failure with hypercapnia Is this a current diagnosis for this admission?: Yes (2) Chronic combined systolic and diastolic heart failure Is this a current diagnosis for this admission?: Yes Plan: bmp (3) Idiopathic chronic gout of multiple sites without tophus Is this a current diagnosis for this admission?: Yes (4) Obstructive sleep apnea Is this a current diagnosis for this admission?: Yes (5) Type 2 diabetes mellitus with diabetic chronic kidney disease Qualifiers: Diabetes mellitus long-term insulin use: without long-term use Chronic kidney disease stage: stage 4 (severe) Qualified Code(s): E11.22 - Type 2 diabetes mellitus with diabetic chronic kidney disease; N18.4 - Chronic kidney disease, stage 4 (severe) Is this a current diagnosis for this admission?: Yes (6) Morbid (severe) obesity due to excess calories Is this a current diagnosis for this admission?: Yes (7) Adult BMI 50.0-59.9 kg/sq m Is this a current diagnosis for this admission?: Yes - Inpatient Certification Medical Necessity: Failure to Improve With Outpatient Therapy, Significant Comorbidiites Make Outpatient Treatment Too Risky, Need Close Monitoring Due to Risk of Patient Decompensation, Need For Continuous Telemetry Monitoring, Need for Nebulizer Therapy and Monitoring of Response, Risk of Complication if Not Ca red For in Hospital, Risk of Diagnosis Which Will Require Inpatient Eval/Care/Monitoring
[2019-02-18 09:46] LABS: BLOOD UREA NITROGEN 37 mg/dL (7-20); CHLORIDE 90 mmol/L (98-107); GLUCOSE 146 mg/dL (75-110); POTASSIUM 3.9 mmol/L (3.6-5.0); SODIUM 140.9 mmol/L (137-145)
[2019-02-18 10:00] LABS: ANION GAP 2 (5-19); CARBON DIOXIDE 49 mmol/L (22-30)
[2019-02-18] MEDS: FAMOTIDINE 20 MG TABLET PO SCH ×2 (10:26→21:03)
[2019-02-18] MEDS: ACETAZOLAMIDE 500 MG CAPSULE.SA PO SCH (10:26)
[2019-02-18] MEDS: LACTULOSE SYRUP 20 GM/30 ML UDCUP PO SCH (10:26)
[2019-02-18] MEDS: BUMETANIDE INJ/PF 1 MG/4 ML SDV IV SCH (10:27)
[2019-02-18] MEDS: CLOPIDOGREL BISULFATE 75 MG TABLET PO SCH (10:28)
[2019-02-18] MEDS: METOLAZONE 5 MG TABLET PO SCH (10:28)
[2019-02-18] MEDS: METOPROLOL SUCCINATE 25 MG TAB.SR.24H PO SCH ×2 (10:28→21:04)
[2019-02-18] MEDS: ENOXAPARIN SODIUM INJ 30 MG/0.3 ML DISP.SYRIN SUBCUT SCH (10:29)
--- NOTE | 2019-02-18 13:33 | PDOC PROGRESS REPORT ---
Subjective Progress Note for:: 02/18/19 Reason For Visit: Patient seen today. He generally feeling better vis--vis shortness of breath and edema. Eating good. No complaints of any nausea vomiting. I note that he has been started on Diamox by Dr. Garrett. Labs and medications were reviewed with the patient. Physical Exam Vital Signs: Temp Pulse Resp BP Pulse Ox 98.2 F 87 18 107/77 99 02/18/19 12:01 02/18/19 12:01 02/18/19 12:01 02/18/19 12:01 02/18/19 12:01 Intake & Output 02/17/19 02/18/19 02/19/19 06:59 06:59 06:59 Intake Total 2115 1074 240 Output Total 1130 8609 720 Balance -6393 -1541 -043 Weight 170.4 kg 169.5 kg Respiratory exam: PRESENT: chest wall tenderness. ABSENT: crackles Cardiovascular exam: PRESENT: RRR, +S1, +S2 GI/Abdominal exam: PRESENT: normal bowel sounds, soft. ABSENT: organomegaly, tenderness Extremities exam: PRESENT: +2 edema Neurological exam: PRESENT: alert, awake, oriented to person, oriented to place, oriented to time Psychiatric exam: PRESENT: appropriate affect Results Laboratory Results: 02/10/19 02:40 02/18/19 09:05 02/18/19 09:05 Sodium 140.9 Potassium 3.9 Chloride 90 L Carbon Dioxide 49 H* Anion Gap 2 L BUN 37 H Creatinine 1.96 H Est GFR ( Amer) 42 L Est GFR (Non-Af Amer) 35 L Glucose 146 H Calcium 11.0 H 02/10/19 02/11/19 02/12/19 02:40 19:21 02:17 Troponin I 0.083 0.084 0.086 NT-Pro-B Natriuret Pep 3050 H 02/12/19 07:06 Troponin I 0.079 NT-Pro-B Natriuret Pep Impressions: Chest X-Ray 02/10/19 03:33 IMPRESSION: Moderate to severe cardiac enlargement and pulmonary vascular congestion. Differential diagnosis includes CHF. Assessment & Plan - Diagnosis (1) CHF exacerbation Qualifiers: Heart failure type: unspecified Qualified Code(s): I50.9 - Heart failure, unspecified Plan: Patient is got all features suggestive of cor pulmonale. Having a good diuretic response to current medications. Continue on the same. No acute indications for renal replacements. (2) CKD (chronic kidney disease) stage 3, GFR 30-59 ml/min Plan: Status quo. Nonoliguric. Patient is got obviously prerenal cardiac issues that needs to be resolved.I am going to cut back on his Bumex as well as metolazone and monitor. (3) Hypercapnic respiratory failure Qualifiers: Chronicity: acute on chronic Qualified Code(s): J96.22 - Acute and chronic respiratory failure with hypercapnia Is this a current diagnosis for this admission?: Yes Plan: Part of cor pulmonale/sleep apnea untreated.Is also got metabolic alkalosis she is a combination/response to his respiratory acidosis as well as volume loss. Patient has been begun on Diamox. Monitor. (4) Hypertension Plan: Controlled. Monitor. (5) Obstructive sleep apnea Is this a current diagnosis for this admission?: Yes Plan: Noncompliant with CPAP 4 months ago prior to admission. Patient is got features suggestive of decompensated cor pulmonale. Currently getting BiPAP in the hospital. (6) Type 2 diabetes mellitus with diabetic chronic kidney disease Qualifiers: Diabetes mellitus prison insulin use: without prison use Chronic kidney disease stage: stage 4 (severe) Qualified Code(s): E11.22 - Type 2 diabetes mellitus with diabetic chronic kidney disease; N18.4 - Chronic kidney disease, stage 4 (severe) Is this a current diagnosis for this admission?: Yes Plan: Controlled. Monitor.
[2019-02-18] MEDS: ALLOPURINOL 300 MG TABLET PO SCH (17:33)
[2019-02-18] MEDS: LATANOPROST 0.005% OPH SOLN 2.5 ML OU SCH (21:04)
[2019-02-18] MEDS: ATORVASTATIN CALCIUM 80 MG TABLET PO SCH (21:04)
[2019-02-19] MEDS: IPRATROPIUM/ALBUTEROL 0.5-2.5 MG/3 ML AMPUL NEB SCH ×3 (00:21→16:07)
[2019-02-19] MEDS: GABAPENTIN 300 MG CAPSULE PO SCH ×3 (06:35→21:19)
[2019-02-19 07:39] LABS: BLOOD UREA NITROGEN 37 mg/dL (7-20); CALCIUM 10.8 mg/dL (8.4-10.2); CHLORIDE 91 mmol/L (98-107); GLUCOSE 97 mg/dL (75-110); POTASSIUM 3.2 mmol/L (3.6-5.0); SODIUM 140.3 mmol/L (137-145)
[2019-02-19 07:45] LABS: ANION GAP 9 (5-19)
[2019-02-19 07:51] LABS: CARBON DIOXIDE 40 mmol/L (22-30)
[2019-02-19] MEDS ORDERED: BUMETANIDE INJ/PF 1 MG/4 ML SDV IV SCH (08:00)
--- NOTE | 2019-02-19 08:05 | PDOC PROGRESS REPORT ---
Subjective Progress Note for:: 02/19/19 Subjective:: better. Nikkie gilmore came to house and said bipap was working, but there was no wifi to download to. Patient claims it has not worked in 4m. He wore bipap from midnight to 6am. He does not wear it during day. Reason For Visit: HEART FAILURE Physical Exam Vital Signs: Temp Pulse Resp BP Pulse Ox 97.6 F 76 16 107/63 91 L 02/19/19 03:17 02/19/19 07:00 02/19/19 03:17 02/19/19 03:17 02/19/19 03:17 Intake & Output 02/17/19 02/18/19 02/19/19 07:59 07:59 07:59 Intake Total 2115 1074 1124 Output Total 0895 5035 3870 Balance -2995 -2072 -2746 Weight 375 lb 10.683 oz 373 lb 10.936 oz 368 lb 6.279 oz General appearance: PRESENT: morbidly obese Respiratory exam: PRESENT: clear to auscultation caden Cardiovascular exam: ABSENT: diastolic murmur, irregular rhythm, systolic murmur GI/Abdominal exam: ABSENT: tenderness Extremities exam: PRESENT: pedal edema - 3+ Neurological exam: PRESENT: oriented to situation Psychiatric exam: PRESENT: appropriate affect Results Laboratory Results: 02/10/19 02:40 02/19/19 05:42 02/18/19 02/19/19 02/19/19 09:05 05:42 05:42 Sodium 140.9 140.3 Potassium 3.9 3.2 L Chloride 90 L 91 L Carbon Dioxide 49 H* 40 H* Anion Gap 2 L 9 BUN 37 H 37 H Creatinine 1.96 H 2.01 H Est GFR ( Amer) 42 L 41 L Est GFR (Non-Af Amer) 35 L 34 L Glucose 146 H 97 Calcium 11.0 H 10.8 H Magnesium 2.2 Impressions: Chest X-Ray 02/10/19 03:33 IMPRESSION: Moderate to severe cardiac enlargement and pulmonary vascular congestion. Differential diagnosis includes CHF. Assessment & Plan - Diagnosis (1) Hypercapnic respiratory failure Qualifiers: Chronicity: acute on chronic Qualified Code(s): J96.22 - Acute and chronic respiratory failure with hypercapnia Is this a current diagnosis for this admission?: Yes Plan: bicarb 42 49 40. I stopped diamox when bicarb worsened yesterday. He may have to go home without bipap. Prognosis grim either way. (2) Chronic combined systolic and diastolic heart failure Is this a current diagnosis for this admission?: Yes Plan: bun37 cr2 down 5# (3) Idiopathic chronic gout of multiple sites without tophus Is this a current diagnosis for this admission?: Yes (4) Obstructive sleep apnea Is this a current diagnosis for this admission?: Yes (5) Type 2 diabetes mellitus with diabetic chronic kidney disease Qualifiers: Diabetes mellitus termite treater insulin use: without termite treater use Chronic kidney disease stage: stage 4 (severe) Qualified Code(s): E11.22 - Type 2 diabetes mellitus with diabetic chronic kidney disease; N18.4 - Chronic kidney disease, stage 4 (severe) Is this a current diagnosis for this admission?: Yes (6) Morbid (severe) obesity due to excess calories Is this a current diagnosis for this admission?: Yes (7) Adult BMI 50.0-59.9 kg/sq m Is this a current diagnosis for this admission?: Yes - Inpatient Certification Medical Necessity: Failure to Improve With Outpatient Therapy, Significant Comorbidiites Make Outpatient Treatment Too Risky, Need Close Monitoring Due to Risk of Patient Decompensation, Need For Continuous Telemetry Monitoring, Need for Nebulizer Therapy and Monitoring of Response, Risk of Complication if Not Cared For in Hospital, Risk of Diagnosis Which Will Require Inpatient Eval/Care/Monitoring
[2019-02-19] MEDS: ASPIRIN 81 MG TABLET, CHEWABLE PO SCH (08:41)
[2019-02-19] MEDS: GLIMEPIRIDE 1 MG TABLET PO SCH (08:41)
[2019-02-19] MEDS: INSULIN REG, HUMAN 100 UNIT/ML 3 ML VIAL (PYX) SUBCUT SCH ×4 (08:42→21:20)
[2019-02-19] MEDS: METOLAZONE 5 MG TABLET PO SCH (10:28)
[2019-02-19] MEDS: ENOXAPARIN SODIUM INJ 30 MG/0.3 ML DISP.SYRIN SUBCUT SCH (10:28)
[2019-02-19] MEDS: LACTULOSE SYRUP 20 GM/30 ML UDCUP PO SCH ×2 (10:28→10:31)
[2019-02-19] MEDS: CLOPIDOGREL BISULFATE 75 MG TABLET PO SCH (10:28)
[2019-02-19] MEDS: FAMOTIDINE 20 MG TABLET PO SCH ×2 (10:29→21:19)
[2019-02-19] MEDS: METOPROLOL SUCCINATE 25 MG TAB.SR.24H PO SCH ×2 (10:29→21:19)
--- NOTE | 2019-02-19 14:36 | PDOC PROGRESS REPORT ---
Subjective Progress Note for:: 02/19/19 Reason For Visit: Patient seen today. He is currently getting better with decreasing edema as well as decreasing shortness of breath. He is on continuous oxygen as well as BiPAP. Labs and medications were reviewed with the patient. Physical Exam Vital Signs: Temp Pulse Resp BP Pulse Ox 98.6 F 88 20 94/50 L 99 02/19/19 12:16 02/19/19 12:16 02/19/19 12:16 02/19/19 12:16 02/19/19 12:16 Intake & Output 02/18/19 02/19/19 02/20/19 06:59 06:59 06:59 Intake Total 1074 1124 320 Output Total 3147 2110 900 Balance -5505 -2746 -430 Weight 169.5 kg 167.1 kg General appearance: PRESENT: no acute distress Respiratory exam: PRESENT: clear to auscultation caden. ABSENT: crackles Cardiovascular exam: PRESENT: RRR, +S1, +S2 GI/Abdominal exam: PRESENT: normal bowel sounds, soft. ABSENT: organomegaly, tenderness Extremities exam: PRESENT: +1 edema Neurological exam: PRESENT: alert, awake, oriented to person, oriented to place, oriented to time Psychiatric exam: PRESENT: appropriate affect Results Laboratory Results: 02/10/19 02:40 02/19/19 05:42 02/19/19 02/19/19 05:42 05:42 Sodium 140.3 Potassium 3.2 L Chloride 91 L Carbon Dioxide 40 H* Anion Gap 9 BUN 37 H Creatinine 2.01 H Est GFR ( Amer) 41 L Est GFR (Non-Af Amer) 34 L Glucose 97 Calcium 10.8 H Magnesium 2.2 02/10/19 02/11/19 02/12/19 02:40 19:21 02:17 Troponin I 0.083 0.084 0.086 NT-Pro-B Natriuret Pep 3050 H 02/12/19 07:06 Troponin I 0.079 NT-Pro-B Natriuret Pep Impressions: Chest X-Ray 02/10/19 03:33 IMPRESSION: Moderate to severe cardiac enlargement and pulmonary vascular congestion. Differential diagnosis includes CHF. Assessment & Plan - Diagnosis (1) CHF exacerbation Qualifiers: Heart failure type: unspecified Qualified Code(s): I50.9 - Heart failure, unspecified Plan: Patient is got all features suggestive of cor pulmonale. Having a good diuretic response to current medications. Continue on the same. No acute indications for renal replacements. (2) CKD (chronic kidney disease) stage 3, GFR 30-59 ml/min Plan: Status quo. Nonoliguric. Patient is got obviously prerenal cardiac issues that needs to be resolved.Continue on current Bumex as well as metolazone and monitor. (3) Hypercapnic respiratory failure Qualifiers: Chronicity: acute on chronic Qualified Code(s): J96.22 - Acute and chronic respiratory failure with hypercapnia Is this a current diagnosis for this admission?: Yes Plan: Part of cor pulmonale/sleep apnea untreated.Is also got metabolic alkalosis she is a combination/response to his respiratory acidosis as well as volume loss. Patient has been begun on Diamox. Monitor. (4) Hypertension Plan: Controlled. Monitor. (5) Obstructive sleep apnea Is this a current diagnosis for this admission?: Yes Plan: Noncompliant with CPAP 4 months ago prior to admission. Patient is got features suggestive of decompensated cor pulmonale. Currently getting BiPAP in the hospital. (6) Type 2 diabetes mellitus with diabetic chronic kidney disease Qualifiers: Diabetes mellitus fci insulin use: without manager long term care use Chronic kidney disease stage: stage 4 (severe) Qualified Code(s): E11.22 - Type 2 diabetes mellitus with diabetic chronic kidney disease; N18.4 - Chronic kidney disease, stage 4 (severe) Is this a current diagnosis for this admission?: Yes Plan: Controlled. Monitor.
[2019-02-19] MEDS: ACETAZOLAMIDE 250 MG TABLET PO SCH (18:11)
[2019-02-19] MEDS: ALLOPURINOL 300 MG TABLET PO SCH (18:12)
[2019-02-19] MEDS: ATORVASTATIN CALCIUM 80 MG TABLET PO SCH (21:19)
[2019-02-19] MEDS: LATANOPROST 0.005% OPH SOLN 2.5 ML OU SCH (21:20)
[2019-02-20] MEDS: IPRATROPIUM/ALBUTEROL 0.5-2.5 MG/3 ML AMPUL NEB SCH (00:28)
[2019-02-20] MEDS: GABAPENTIN 300 MG CAPSULE PO SCH (05:44)
[2019-02-20 08:14] LABS: BLOOD UREA NITROGEN 34 mg/dL (7-20); CALCIUM 10.9 mg/dL (8.4-10.2); CHLORIDE 89 mmol/L (98-107); GLUCOSE 108 mg/dL (75-110); POTASSIUM 3.2 mmol/L (3.6-5.0); SODIUM 138.5 mmol/L (137-145)
[2019-02-20 08:22] LABS: ANION GAP 7 (5-19)
[2019-02-20 08:23] LABS: CARBON DIOXIDE 43 mmol/L (22-30)
--- NOTE | 2019-02-20 09:17 | PDOC DISCHARGE SUMMARY ---
General - Admit/Disc Date/PCP Admission Date/Primary Care Provider: 02/10/19 05:33 STEVIE REGAN MD Discharge Date: 02/20/19 - Discharge Diagnosis (1) Hypercapnic respiratory failure Is this a current diagnosis for this admission?: Yes (2) Chronic combined systolic and diastolic heart failure Is this a current diagnosis for this admission?: Yes (3) Idiopathic chronic gout of multiple sites without tophus Is this a current diagnosis for this admission?: Yes (4) Obstructive sleep apnea Is this a current diagnosis for this admission?: Yes (5) Type 2 diabetes mellitus with diabetic chronic kidney disease Is this a current diagnosis for this admission?: Yes (6) Morbid (severe) obesity due to excess calories Is this a current diagnosis for this admission?: Yes (7) Adult BMI 50.0-59.9 kg/sq m Is this a current diagnosis for this admission?: Yes - Additional Information Resuscitation Status: Full Code Discharge Diet: Cardiac, Diabetic Discharge Activity: Activity As Tolerated, Balance Activity w/Rest, Weigh Daily Prescriptions: Acetazolamide [Diamox 250 mg Tab] 250 mg PO DAILY #30 tablet Bumetanide [Bumex 1 mg Tablet] 1 tab PO DAILY #90 tab Glimepiride [Amaryl 1 mg Tablet] 0.5 mg PO QAM #45 tablet Metolazone [Zaroxolyn 5 mg Tablet] 2.5 mg PO DAILY #30 tablet Metoprolol Succinate [Toprol Xl] 50 mg PO DAILY #90 tab.er.24h Home Medications: Albuterol Sulfate [Proair HFA Inhalation Aerosol 8.5 gm MDI] 2 puff IH Q4HP PRN 02/10/19 Allopurinol [Zyloprim 300 mg Tablet] 150 mg PO QPM 02/10/19 Aspirin [Aspirin 81 mg Chewable Tablet] 81 mg PO QAM 02/10/19 Atorvastatin Calcium [Lipitor 80 mg Tablet] 80 mg PO QHS 02/10/19 Cetirizine HCl [Zyrtec 10 mg Tablet] 10 mg PO QHS 02/10/19 Clopidogrel Bisulfate [Plavix 75 mg Tablet] 75 mg PO QAM 02/10/19 Gabapentin [Neurontin 300 mg Capsule] 300 mg PO Q8 02/10/19 Latanoprost [Xalatan 0.005% Oph Soln 2.5 ml] 1 drop OU QHS 02/10/19 Ranitidine HCl [Zantac 150 mg Tablet] 150 mg PO BID 02/10/19 Acetazolamide [Diamox 250 mg Tab] 250 mg PO DAILY #30 tablet 02/20/19 Bumetanide [Bumex 1 mg Tablet] 1 tab PO DAILY #90 tab 02/20/19 Clopidogrel Bisulfate [Plavix 75 mg Tablet] 75 mg PO DAILY tablet 02/20/19 Glimepiride [Amaryl 1 mg Tablet] 0.5 mg PO QAM #45 tablet 02/20/19 Metolazone [Zaroxolyn 5 mg Tablet] 2.5 mg PO DAILY #30 tablet 02/20/19 Metoprolol Succinate [Toprol Xl] 50 mg PO DAILY #90 tab.er.24h 02/20/19 History of Present Illness Patient complains of: dyspnea History of Present Illness: MIKE SOLITARIO JR is a 63 year old male with morbid obesity and sleep apnea since 2002. 2005 fvc57 fev1=44 ratio63 [id number] 2013 ahi48 sat>76 14cm=ahi5 sat>[address] Kiran retitrated bipap 15*11 ahi0.4 Now richard no longer supports [employer]. Trying to get bipap from [facility] 2013 neelam ej33 scar inferior apical ischemia inferior Lad20% 2016 neelam=ischemia. Dr Estes suggested meds. 3d cant shower or keep house. Hospital Course Hospital Course: After echo and consults with Dr Hurst & nephrology he diureses only 7# on 2 diuretics. Ejection was down to 30%. Bipap about 6h at night helped some, but all attempts to fix his 2y old home machine failed so far. Richard said they would stop in on next [employer] trip. Oxygen was started. Bicarb climbed to 40s in spite of acetazolamide. He understands his poor prognosis but wants full code. Physical Exam Vital Signs: Temp Pulse Resp BP Pulse Ox 97.2 F 77 17 104/56 L 92 02/20/19 03:10 02/20/19 07:00 02/20/19 03:10 02/20/19 03:10 02/20/19 03:10 Intake & Output 02/19/19 02/20/19 02/21/19 07:59 07:59 07:59 Intake Total 1124 798 Output Total [address] [facility] -2745 Weight 368 lb 6.279 oz 364 lb 6.786 oz General appearance: PRESENT: no acute distress Respiratory exam: PRESENT: clear to auscultation caden Cardiovascular exam: ABSENT: diastolic murmur, irregular rhythm, systolic murmur GI/Abdominal exam: ABSENT: mass, organolmegaly, tenderness Extremities exam: PRESENT: pedal edema - 3+ Neurological exam: PRESENT: oriented to situation Psychiatric exam: PRESENT: appropriate affect Results Laboratory Results: Labs- Last Values WBC 5.8 10^3/uL (4.0-10.5) 02/10/19 02:40 RBC 4.19 10^6/uL (4.35-5.55) L 02/10/19 02:40 Hgb 13.3 g/dL (13.5-17.0) L 02/10/19 02:40 Hct 40.4 % (37.9-51.0) 02/10/19 02:40 MCV 96 fl (80-97) 02/10/19 02:40 MCH 31.9 pg (27.0-33.4) 02/10/19 02:40 MCHC 33.0 g/dL (32.0-36.0) 02/10/19 02:40 RDW 14.1 % (11.5-14.0) H 02/10/19 02:40 Plt Count 176 10^3/uL (150-450) 02/10/19 02:40 Seg Neutrophils % 77.7 % (42-78) 02/10/19 02:40 Lymphocytes % 14.1 % (13-45) 02/10/19 02:40 Monocytes % 6.6 % (3-13) 02/10/19 02:40 Eosinophils % 1.0 % (0-6) 02/10/19 02:40 Basophils % 0.6 % (0-2) 02/10/19 02:40 Absolute Neutrophils 4.5 10^3/uL (1.7-8.2) 02/10/19 02:40 Absolute Lymphocytes 0.8 10^3/uL (0.5-4.7) 02/10/19 02:40 Absolute Monocytes 0.4 10^3/uL (0.1-1.4) 02/10/19 02:40 Absolute Eosinophils 0.1 10^3/uL (0.0-0.6) 02/10/19 02:40 Absolute Basophils 0.0 10^3/uL (0.0-0.2) 02/10/19 02:40 Carbonic Acid Cancelled 02/10/19 03:50 HCO3/H2CO3 Ratio Cancelled 02/10/19 03:50 ABG pH Cancelled 02/10/19 03:50 ABG pCO2 Cancelled 02/10/19 03:50 ABG pO2 Cancelled 02/10/19 03:50 ABG HCO3 Cancelled 02/10/19 03:50 ABG Total CO2 Cancelled 02/10/19 03:50 ABG O2 Saturation Cancelled 02/10/19 03:50 ABG Base Excess Cancelled 02/10/19 03:50 VBG pH 7.27 (7.30-7.42) L 02/10/19 03:50 VBG pCO2 94.6 mmHg (35-63) H* 02/10/19 03:50 VBG HCO3 42.1 mmol/L (20-32) H 02/10/19 03:50 VBG Base Excess 10.8 mmol/L 02/10/19 03:50 FiO2 Cancelled 02/10/19 03:50 Sodium 138.5 mmol/L (137-145) 02/20/19 07:44 Potassium 3.2 mmol/L (3.6-5.0) L 02/20/19 07:44 Chloride 89 mmol/L (98-107) L 02/20/19 07:44 Carbon Dioxide 43 mmol/L (22-30) H* 02/20/19 07:44 Anion Gap 7 (5-19) 02/20/19 07:44 BUN 34 mg/dL (7-20) H 02/20/19 07:44 Creatinine 1.97 mg/dL (0.52-1.25) H 02/20/19 07:44 Est GFR ( Amer) 42 (>60) L 02/20/19 07:44 Est GFR (Non-Af Amer) 35 (>60) L 02/20/19 07:44 Glucose 108 mg/dL (75-110) 02/20/19 07:44 POC Glucose 121 mg/dL (70-110) H 02/20/19 07:30 Hemoglobin A1c % 8.1 % (4.7-6.0) H 02/11/19 04:04 Calcium 10.9 mg/dL (8.4-10.2) H 02/20/19 07:44 Magnesium 2.2 mg/dL (1.6-2.3) 02/19/19 05:42 Total Bilirubin 1.7 mg/dL (0.2-1.3) H 02/10/19 02:40 Direct Bilirubin 0.3 mg/dL (0.0-0.4) 02/10/19 02:40 Neonat Total Bilirubin Not Reportable 02/10/19 02:40 Neonat Direct Bilirubin Not Reportable 02/10/19 02:40 Neonat Indirect Bili Not Reportable 02/10/19 02:40 AST 21 U/L (17-59) 02/10/19 02:40 ALT 32 U/L (21-72) 02/10/19 02:40 Alkaline Phosphatase 100 U/L (38-126) 02/10/19 02:40 Troponin I 0.079 ng/mL 02/12/19 07:06 NT-Pro-B Natriuret Pep 3050 pg/mL (5-900) H 02/10/19 02:40 Total Protein 6.8 g/dL (6.3-8.2) 02/10/19 02:40 Albumin 4.1 g/dL (3.5-5.0) 02/10/19 02:40 Triglycerides 82 mg/dL (<150) 02/11/19 04:04 Cholesterol 109.64 mg/dL (0-200) 02/11/19 04:04 LDL Cholesterol Direct 60 mg/dL (<100) 02/11/19 04:04 VLDL Cholesterol 16.0 mg/dL (10-31) 02/11/19 04:04 HDL Cholesterol 39 mg/dL (>40) L 02/11/19 04:04 Impressions: Chest X-Ray 02/10/19 03:33 IMPRESSION: Moderate to severe cardiac enlargement and pulmonary vascular congestion. Differential diagnosis includes CHF. Qualifiers - * PATIENT BEING DISCHARGED WITH ANY OF THE FOLLOWING DIAGNOSIS: No Acute Heart Failure - Is this a Heart Failure Patient?: No Plan Discharge Plan: home. 5d ov
[2019-02-20] MEDS: METOPROLOL SUCCINATE 25 MG TAB.SR.24H PO SCH (09:42)
[2019-02-20] MEDS: METOLAZONE 5 MG TABLET PO SCH (09:42)
[2019-02-20] MEDS: GLIMEPIRIDE 1 MG TABLET PO SCH (09:42)
[2019-02-20] MEDS: ASPIRIN 81 MG TABLET, CHEWABLE PO SCH (09:42)
[2019-02-20] MEDS: CLOPIDOGREL BISULFATE 75 MG TABLET PO SCH (09:42)
[2019-02-20] MEDS: ACETAZOLAMIDE 250 MG TABLET PO SCH (09:42)
[2019-02-20] MEDS: LACTULOSE SYRUP 20 GM/30 ML UDCUP PO SCH (09:43)
[2019-02-20] MEDS: ENOXAPARIN SODIUM INJ 30 MG/0.3 ML DISP.SYRIN SUBCUT SCH (09:43)
[2019-02-20 12:41] VITALS: BP 98/69
== END 2019-02-20 13:04 | disposition home or self-care (01) | DRG 189 ==
LOC: ER 01:55 → EH 05:33 → 3N 15:14
PROVIDERS: ADMIT Family Medicine; ATTEND Family Medicine
PROC: 5A09357 Assistance with Respiratory Ventilation, Less than 24 Consecutive Hours, Continuous Positive Airway Pressure (ICD-10-PCS; principal; 2019-02-13)
DX: J96.22 Acute and chronic respiratory failure with hypercapnia (principal); E87.3 Alkalosis; I13.0 Hypertensive heart and chronic kidney disease with heart failure and stage 1 through stage 4 chronic kidney disease, or unspecified chronic kidney disease; I50.42 Chronic combined systolic (congestive) and diastolic (congestive) heart failure; N18.4 Chronic kidney disease, stage 4 (severe); I42.9 Cardiomyopathy, unspecified; Z68.43 Body mass index [BMI] 50.0-59.9, adult; E11.22 Type 2 diabetes mellitus with diabetic chronic kidney disease; R56.9 Unspecified convulsions; I27.81 Cor pulmonale (chronic); E66.01 Morbid (severe) obesity due to excess calories; J44.9 Chronic obstructive pulmonary disease, unspecified; I25.10 Atherosclerotic heart disease of native coronary artery without angina pectoris; E78.5 Hyperlipidemia, unspecified; D63.1 Anemia in chronic kidney disease; K21.9 Gastro-esophageal reflux disease without esophagitis; M19.90 Unspecified osteoarthritis, unspecified site; F32.9 Major depressive disorder, single episode, unspecified; F43.10 Post-traumatic stress disorder, unspecified; Z96.659 Presence of unspecified artificial knee joint; J02.9 Acute pharyngitis, unspecified; K59.00 Constipation, unspecified; M1A.09X0 Idiopathic chronic gout, multiple sites, without tophus (tophi); I87.2 Venous insufficiency (chronic) (peripheral); G47.33 Obstructive sleep apnea (adult) (pediatric); F51.3 Sleepwalking [somnambulism]; I44.7 Left bundle-branch block, unspecified; I25.2 Old myocardial infarction; Z86.73 Personal history of transient ischemic attack (TIA), and cerebral infarction without residual deficits; Z95.5 Presence of coronary angioplasty implant and graft; Z88.8 Allergy status to other drugs, medicaments and biological substances; Z91.11 Patient's noncompliance with dietary regimen; Z91.19 Patient's noncompliance with other medical treatment and regimen; Z79.84 Long term (current) use of oral hypoglycemic drugs; Z79.82 Long term (current) use of aspirin; Z82.61 Family history of arthritis; Z83.3 Family history of diabetes mellitus; Z82.49 Family history of ischemic heart disease and other diseases of the circulatory system
CPT/HCPCS: 36415; 71045; 80048; 80053; 80061; 82803; 82962; 83036; 83735; 83880; 84484; 85025; 93005; 93010; 93306; 94640; 94660; 96374; 96375; 99291; J1650; J1815; J1940; J2930; J3490; J7620